=== PATIENT | female | born 1980 | race Caucasian/White ===

== ENCOUNTER → 2019-03-06 12:51 | Outpatient (BNVA) | payer MEDICAID, SELFPAY | PROVIDERS: Family Provider Family Medicine; PCP Family Medicine; Visit Provider Nurse Practitioner Psychiatric/Mental Health | DX: F25.0 Schizoaffective disorder, bipolar type (principal) | CPT/HCPCS: 99213 ==

== ENCOUNTER → 2019-04-03 09:39 | Outpatient (BNVA) | payer MEDICAID, SELFPAY | PROVIDERS: Family Provider Family Medicine; PCP Family Medicine; Visit Provider Social Worker Clinical | DX: F25.0 Schizoaffective disorder, bipolar type (principal) | CPT/HCPCS: 90834 ==

== ENCOUNTER → 2019-05-04 12:31 | Outpatient (BNVA) | payer MEDICAID, SELFPAY | PROVIDERS: Family Provider Family Medicine; PCP Family Medicine; Visit Provider Social Worker Clinical | DX: F25.0 Schizoaffective disorder, bipolar type (principal) | CPT/HCPCS: 90834 ==

== ENCOUNTER → 2019-05-28 07:12 | Outpatient (BNVA) | payer MEDICAID, SELFPAY | PROVIDERS: Family Provider Family Medicine; PCP Family Medicine; Visit Provider Nurse Practitioner Psychiatric/Mental Health | DX: F25.0 Schizoaffective disorder, bipolar type (principal) | CPT/HCPCS: 99214 ==

== ENCOUNTER → 2019-06-04 13:16 | Outpatient (BNVA) | payer MEDICAID, SELFPAY | PROVIDERS: Family Provider Family Medicine; PCP Family Medicine; Visit Provider Social Worker Clinical | DX: F25.0 Schizoaffective disorder, bipolar type (principal) | CPT/HCPCS: 90834 ==

== ENCOUNTER → 2019-06-18 08:11 | Outpatient (BNVA) | payer MEDICAID, SELFPAY | PROVIDERS: Family Provider Family Medicine; PCP Family Medicine; Visit Provider Social Worker Clinical | DX: F25.0 Schizoaffective disorder, bipolar type (principal) | CPT/HCPCS: 90832 ==

== ENCOUNTER → 2019-06-25 08:03 | Outpatient (BNVA) | payer MEDICAID, SELFPAY | PROVIDERS: Family Provider Family Medicine; PCP Family Medicine; Visit Provider Nurse Practitioner Psychiatric/Mental Health | DX: F25.0 Schizoaffective disorder, bipolar type (principal) | CPT/HCPCS: 99213 ==

== ENCOUNTER → 2019-07-10 09:04 | Outpatient (BNVA) | payer MEDICAID, SELFPAY | PROVIDERS: Family Provider Family Medicine; PCP Family Medicine; Visit Provider Obstetrics & Gynecology | DX: Z30.42 Encounter for surveillance of injectable contraceptive (principal) | CPT/HCPCS: 81025 ==

== ENCOUNTER → 2019-07-17 07:49 | Outpatient (BNVA) | payer MEDICAID, SELFPAY | PROVIDERS: Family Provider Family Medicine; PCP Family Medicine; Visit Provider Social Worker Clinical | DX: F25.0 Schizoaffective disorder, bipolar type (principal) | CPT/HCPCS: 90832 ==

== ENCOUNTER → 2019-07-24 07:37 | Outpatient (BNVA) | payer MEDICAID, SELFPAY | PROVIDERS: Family Provider Family Medicine; PCP Family Medicine; Visit Provider Nurse Practitioner Psychiatric/Mental Health | DX: F25.0 Schizoaffective disorder, bipolar type (principal); Z79.899 Other long term (current) drug therapy | CPT/HCPCS: 99213 ==

== ENCOUNTER → 2019-08-17 08:05 | Outpatient (BNVA) | payer MEDICAID, SELFPAY | PROVIDERS: Family Provider Family Medicine; PCP Family Medicine; Visit Provider Social Worker Clinical | DX: F25.0 Schizoaffective disorder, bipolar type (principal) | CPT/HCPCS: 90832 ==

== ENCOUNTER → 2019-09-14 07:59 | Outpatient (BNVA) | payer MEDICAID, SELFPAY | PROVIDERS: Family Provider Family Medicine; PCP Family Medicine; Visit Provider Social Worker Clinical | DX: F25.0 Schizoaffective disorder, bipolar type (principal) | CPT/HCPCS: 90791 ==

== ENCOUNTER → 2019-09-17 08:28 | Outpatient (BNVA) | payer MEDICAID, SELFPAY | PROVIDERS: Family Provider Family Medicine; PCP Family Medicine; Visit Provider Nurse Practitioner Psychiatric/Mental Health | DX: F25.0 Schizoaffective disorder, bipolar type (principal); F43.12 Post-traumatic stress disorder, chronic; Z79.899 Other long term (current) drug therapy | CPT/HCPCS: 99213 ==

== ENCOUNTER → 2019-09-18 09:09 | Outpatient (BNVA) | payer MEDICAID, SELFPAY | PROVIDERS: Family Provider Family Medicine; PCP Family Medicine; Visit Provider Nurse Practitioner Psychiatric/Mental Health | DX: Z79.899 Other long term (current) drug therapy (principal) | CPT/HCPCS: 80053; 80061; 83036; 85025 ==

== ENCOUNTER 2019-11-08 08:18 | Inpatient (IN) | payer MEDICAID, SELFPAY ==
[2019-11-08 08:18] VITALS: BP 134/103; PULSE 110; RESP 16; TEMP 36.6; O2SAT 96; BMI 25.6
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
[2019-11-08 08:52] LABS: Glucose Point of Care 174 mg/dL (70-110)
[2019-11-08 09:23] LABS: Add Urine Microscopic? NO
[2019-11-08 09:31] LABS: Basophils # 0.1 10^3/uL (0.0-0.1); Basophils % 0.4 %; Eosinophils # 0.1 10^3/uL (0.0-0.8); Eosinophils % 0.6 %; Hematocrit 47.9 % (37.0-47.0); Hemoglobin 16.4 g/dL (11.5-15.3); Lymphocytes # 2.2 10^3/uL (0.8-4.8); Lymphocytes % 20.1 %; Mean Corpuscular HGB Conc 34.2 g/dL (30.0-36.0); Mean Corpuscular Hemoglobin 34.5 pg (28.0-34.0); Mean Corpuscular Volume 100.8 fL (81-99); Mean Platelet Volume 10.4 fL (7.4-10.4); Monocytes # 0.5 10^3/uL (0.2-0.9); Monocytes % 4.9 %; Neutrophils # 8.19 10^3/uL (1.8-7.7); Neutrophils % 73.6 %; Nucleated Red Blood Cells % 0 %; Platelet Count 274 10^3/cmm (130-400); Red Blood Count 4.75 10^6/uL (4.1-5.3); Red Cell Distribution Width 12.3 % (12.1-15.1); White Blood Count 11.1 10^3/uL (4.0-10.0)
[2019-11-08 09:40] LABS: HCG Qualitative Urine. Negative (Negative); Urine Appearance Clear (CLEAR); Urine Color Yellow (Yellow)
[2019-11-08 09:41] LABS: Bilirubin Urine Neg (Negative); Blood Urine Neg (Negative); Glucose Urine UA Norm (Normal); Ketones Urine Negative (Negative); Leukocyte Esterase Urine Negative (Negative); Nitrate Urine Negative (Negative); Protein Urine Neg (Negative); Urobilinogen Urine Norm (Negative); pH Urine 6.5 (5-7)
[2019-11-08 09:43] LABS: INR 0.86 (0.8-1.2)
[2019-11-08 09:48] LABS: Amphetamines Screen Urine Negative (Negative); Barbiturates Screen Urine Negative (Negative); Benzodiazepines Screen Urine Negative (Negative); Cocaine Screen Urine Negative (Negative); Opiate Screen Urine Negative (Negative); PCP Screen Urine Negative (Negative); THC Screen Urine Positive (Negative)
[2019-11-08 10:05] LABS: Alanine Aminotransferase 10 U/L (0-33); Alkaline Phosphatase 110 IU/L (35-105); Anion Gap 16.8 (5-19); Aspartate Amino Transferase 16 U/L (0-32); Blood Urea Nitrogen 3 mg/dL (6-20); Calcium 9.6 mg/dL (8.5-10.5); Carbon Dioxide 20 mmol/L (22-29); Chloride 103 mmol/L (98-107); Creatinine Clr Calc Pharmacy 93.5358; Globulin 3.1 g/dL (1.3-4.6); Glomerular Filtration Rate 92.7 mL/min (90-130); Glucose 178 mg/dL (65-115); Osmolality Calculated 282 mOsm/kg (285-295); Potassium 3.8 mmol/L (3.5-5.1); Salicylate 0.6 mg/dL (3-10); Sodium 136 mmol/L (136-145); Thyroid Stimulating Hormone 1.68 uIU/mL (0.27-4.20); Total Bilirubin 0.3 mg/dL (0.15-1.2); Total Protein 7.1 g/dL (6.6-8.7)
[2019-11-08 10:06] LABS: Acetaminophen < 5.0 ug/mL (10-30); Alcohol Level < 10 mg/dL (0-10)
--- NOTE | 2019-11-08 10:26 | PC.NURSE ---
pt upset stating she wants to be released. ED physician and this nurse in room to inform her that she is placed on a 96 hour hold. pt understands.
[2019-11-08 10:38] VITALS: BP 163/120; PULSE 114; RESP 19; TEMP 36.8; O2SAT 98
[2019-11-08 14:00] VITALS: BP 111/75; PULSE 77; RESP 16; TEMP 36.7
[2019-11-08] MEDS: ziprasidone hcl 40 mg Capsule PO (14:10)
[2019-11-08] MEDS: BuSPIRONE 10 mg Tablet PO (14:11)
[2019-11-08 16:37] LABS: Glucose Point of Care 132 mg/dL (70-110)
[2019-11-08] MEDS: metformin 500 mg Tablet PO (17:25)
[2019-11-08] MEDS: ziprasidone hcl 40 mg Capsule 80 MG PO (17:26)
[2019-11-08 22:00] VITALS: BP 94/61; PULSE 87; RESP 15; TEMP 37.5; O2SAT 96
--- NOTE | 2019-11-08 22:20 | PC.NURSE ---
attempt made to give pt scheduled HS elijah, pt refused med.
--- NOTE | 2019-11-09 02:53 | PC.NURSE ---
Patient is sleeping and has been in her room since 1900 when I came on shift. She is pleasant and easy to work with. She said that she had been chilling but that has stopped. She reports being tired.
[2019-11-09 05:33] LABS: Glucose Point of Care 136 mg/dL (70-110)
[2019-11-09] MEDS: ziprasidone hcl 40 mg Capsule PO (05:35)
[2019-11-09 06:00] VITALS: BP 137/92; PULSE 83; RESP 16; TEMP 36.7; O2SAT 94
--- NOTE | 2019-11-09 06:01 | PC.NURSE ---
pt given scheduled buspar and geodon without difficulty.
[2019-11-09] MEDS: metformin 500 mg Tablet PO ×2 (09:09→17:15)
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
[2019-11-09 13:43] VITALS: BP 140/86; PULSE 81; RESP 18; TEMP 36.9; O2SAT 96
--- NOTE | 2019-11-09 15:24 | PC.RESP ---
Smoking Cessation information and a schedule of classes sent to patient.
[2019-11-09] MEDS: ziprasidone hcl 40 mg Capsule 80 MG PO (17:16)
[2019-11-09] MEDS: BuSPIRONE 10 mg Tablet PO (20:44)
[2019-11-09] MEDS: trazodone 50 mg Tablet PO (20:45)
[2019-11-09] MEDS: hyDROXYzine 25 mg Capsule 50 MG PO (20:45)
[2019-11-09 22:00] VITALS: BP 107/74; PULSE 88; RESP 16; TEMP 36.6; O2SAT 95
--- NOTE | 2019-11-09 22:00 | PC.NURSE ---
PT WAS GIVEN SCHEDULED BUSPAR WELL PRN TRAZODONE AND PRN VISTARIL PER PT REQUEST FOR ANXIETY AND SLEEP MEDS.
[2019-11-10] MEDS: ziprasidone hcl 40 mg Capsule PO (05:55)
[2019-11-10 06:00] VITALS: BP 129/82; PULSE 71; RESP 16; TEMP 36.6; O2SAT 94
[2019-11-10 07:04] LABS: Glucose Point of Care 148 mg/dL (70-110)
[2019-11-10] MEDS: metformin 500 mg Tablet PO ×2 (09:00→17:48)
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
[2019-11-10 14:00] VITALS: BP 112/84; PULSE 72; RESP 18; TEMP 36.7; O2SAT 96
[2019-11-10 16:53] LABS: Glucose Point of Care 150 mg/dL (70-110)
[2019-11-10] MEDS: ziprasidone hcl 40 mg Capsule 80 MG PO (17:49)
[2019-11-10 20:40] VITALS: BP 123/85; PULSE 74; RESP 16; TEMP 36.4; O2SAT 94
[2019-11-10] MEDS: trazodone 50 mg Tablet PO (21:09)
[2019-11-10] MEDS: hyDROXYzine 25 mg Capsule 50 MG PO (21:09)
[2019-11-10] MEDS: BuSPIRONE 10 mg Tablet PO (21:09)
[2019-11-11 06:00] VITALS: BP 97/29; PULSE 73; RESP 16; TEMP 37.1; O2SAT 92
[2019-11-11] MEDS: ziprasidone hcl 60 mg Capsule PO (06:22)
[2019-11-11] MEDS: metformin 500 mg Tablet PO ×2 (07:53→16:55)
[2019-11-11 14:00] VITALS: BP 112/80; PULSE 69; RESP 18; TEMP 36.7; O2SAT 96
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
[2019-11-11] MEDS: ziprasidone hcl 40 mg Capsule 80 MG PO (16:55)
[2019-11-11 17:00] LABS: Glucose Point of Care 177 mg/dL (70-110)
[2019-11-11] MEDS: hyDROXYzine 25 mg Capsule 50 MG PO (21:15)
[2019-11-11] MEDS: BuSPIRONE 10 mg Tablet PO (21:15)
[2019-11-11 21:39] VITALS: BP 124/85; PULSE 63; RESP 19; TEMP 36.6; O2SAT 96
[2019-11-12 06:00] VITALS: BP 116/80; PULSE 80; RESP 17; TEMP 36.8; O2SAT 96
[2019-11-12] MEDS: ziprasidone hcl 60 mg Capsule PO (06:58)
[2019-11-12 07:00] LABS: Glucose Point of Care 157 mg/dL (70-110)
[2019-11-12] MEDS: metformin 500 mg Tablet PO ×2 (08:18→17:07)
[2019-11-12 14:00] VITALS: BP 105/74; PULSE 77; RESP 18; TEMP 37.7; O2SAT 96
[2019-11-12] MEDS: ziprasidone hcl 40 mg Capsule 80 MG PO (17:08)
[2019-11-12 20:22] LABS: Glucose Point of Care 131 mg/dL (70-110)
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
[2019-11-12 22:00] VITALS: BP 119/77; PULSE 62; RESP 20; TEMP 36.5; O2SAT 96
[2019-11-12] MEDS: BuSPIRONE 10 mg Tablet PO (22:00)
[2019-11-13] MEDS: ziprasidone hcl 60 mg Capsule PO (05:44)
[2019-11-13 06:00] VITALS: BP 141/93; PULSE 74; RESP 19; TEMP 36.9; O2SAT 97
[2019-11-13 06:42] LABS: Glucose Point of Care 169 mg/dL (70-110)
[2019-11-13] MEDS: metformin 500 mg Tablet PO (08:35)
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
[2019-11-13 10:02] VITALS: BP 141/93; PULSE 74; RESP 19; TEMP 36.9; O2SAT 97
== END 2019-11-13 10:48 | disposition home or self-care (01) | DRG 885 ==
LOC: ER 08:39 → NP 10:29
PROVIDERS: Emergency Medicine; Admitting Provider Psychiatry & Neurology Psychiatry; PCP Family Medicine; Visit Provider Psychiatry & Neurology Psychiatry
DX: F25.0 Schizoaffective disorder, bipolar type (principal); Z91.14 Patient's other noncompliance with medication regimen; R45.850 Homicidal ideations; F17.210 Nicotine dependence, cigarettes, uncomplicated; E11.9 Type 2 diabetes mellitus without complications; Z79.84 Long term (current) use of oral hypoglycemic drugs
CPT/HCPCS: 12345; 36416; 80053; 80306; 80307; 81003; 81025; 82962; 84443; 85025; 85610; 99284

== ENCOUNTER 2019-11-18 19:18 | Inpatient (IN) | payer MEDICAID, SELFPAY ==
[2019-11-18 19:20] VITALS: BP 147/99; PULSE 112; RESP 20; TEMP 37.2; O2SAT 96; BMI 32.9
--- NOTE | 2019-11-18 19:28 | ED_ITS ---
HPI - Psych General: Chief Complaint: Psychiatric Symptoms Stated Complaint: SI Time Seen by Provider: 11/18/19 19:19 Source: patient and police Mode of arrival: other (police) Limitations: no limitations History of Present Illness: HPI Narrative: 38-year-old female who came in by police for acute psychosis. Patient was recently admitted to the psych unit for the same. Patient's mother states that she has not been taking her meds and is been using street drugs. Patient here states that she can hear the government talking in her house and thinks her can burn her house down and also believes they are going to take over other countries. She denies SI or HI. Associated symptoms: Reports auditory hallucinations Review of Systems Const: Denies: fever(s), chills, body aches or change in appetite Eyes: Denies: blurry vision or eye discomfort ENMT: Denies: throat pain or dental pain Card: Denies: chest pain Resp: Denies: dyspnea GI: Denies: abdominal pain, nausea, vomiting or diarrhea : Denies: dysuria Musc: Denies: neck pain or back pain Skin/Breast: Denies: rash Neuro: Denies: headache(s) Psych: Reports: paranoia and auditory hallucinations Mukund/Lymph: Denies: easy bruising All/Imm: Denies: urticaria PFSH ED PFSH: Medical History Contraception management Schizoaffective disorder, bipolar type Type 2 diabetes mellitus Family History Mother Hypertension Denies family history of Diabetes Hyperlipidemia Stroke Social History Smoking and tobacco status: current every day smoker cigarettes Packs smoked per day: 0.5 Years cigarettes smoked: 20 Quit status (tobacco): not considering quitting Second hand smoke exposure: No Alcohol intake: never Last substance use date: 07/03/19 Physical Exam Const: COMMON NORMALS: no acute distress, patient oriented x3 and healthy appearing HENMT: COMMON NORMALS: normocephalic and atraumatic HEAD & SCALP: normocephalic and atraumatic Eye: COMMON NORMALS: Equal, round and reactive pupils present and EOMs intact bilaterally PUPIL: Yes Equal, round and reactive pupils present Neck/C-Spine: COMMON NORMALS: full ROM and supple Chest: COMMONS NORMALS: normal inspection of the chest and normal palpation of entire chest wall Resp: COMMON NORMALS: normal respiratory effort, No retractions, No use of accessory muscles and clear to auscultation bilaterally AUSCULTATION: clear to auscultation bilaterally Cardio: COMMON NORMALS: regular rate, regular rhythm and No murmurs present (Cardio) RATE: regular rate RHYTHM: regular rhythm GI: COMMON NORMALS: Normal to inspection, nondistended, normoactive bowel sounds present, Soft to palpation, non-tender and no masses PALPATION: Yes Soft to palpation Extremity: COMMON NORMALS: normal to inspection and full ROM Neuro: COMMON NORMALS: patient oriented x3, moves all extremities and no focal motor deficits Psych: COMMON NORMALS: mental status grossly normal and cooperative THOUGHT PROCESS: disorganized, Flight of ideas present and Illogical thought process present Skin: COMMON NORMALS: no rashes or lesions noted and no wounds GENERAL SKIN EXAM: no rashes or lesions noted MDM - Psych MDM Narrative: Medical decision making narrative: Patient presents with acute psychosis. Per mom she has been using drugs and not taking her medicines. Patient is acutely psychotic and is telling me that she can hear the government and they are planning to take over other countries and burn her house down. Patient is quite anxious as well. Lab Data: Labs: Lab Results 11/18/19 11/18/19 Range/Units 19:40 19:40 WBC 12.5 H (4.0-10.0) 10^3/ uL RBC 4.80 (4.1-5.3) 10^6/u L Hgb 16.6 H (11.5-15.3) g/dL Hct 47.9 H (37.0-47.0) % MCV 99.8 H (81-99) fL MCH 34.6 H (28.0-34.0) pg MCHC 34.7 (30.0-36.0) g/dL RDW 11.9 L (12.1-15.1) % Plt Count 290 (130-400) 10^3/c mm MPV 10.4 (7.4-10.4) fL Neut % (Auto) 52.6 % Lymph % (Auto) 41.1 % Moody % (Auto) 4.5 % Eos % (Auto) 1.0 % Baso % (Auto) 0.5 % Neut # (Auto) 6.59 (1.8-7.7) 10^3/u L Lymph # (Auto) 5.2 H (0.8-4.8) 10^3/u L Moody # (Auto) 0.6 (0.2-0.9) 10^3/u L Eos # (Auto) 0.1 (0.0-0.8) 10^3/u L Baso # (Auto) 0.1 (0.0-0.1) 10^3/u L Nucleated RBC % (a uto) 0 % Nucleated RBCs # 0.0 /100WBC Sodium 136 (136-145) mmol/L Potassium 3.4 L (3.5-5.1) mmol/L Chloride 102 (98-107) mmol/L Carbon Dioxide 20 L (22-29) mmol/L Anion Gap 17.4 (5-19) BUN 6 (6-20) mg/dL Creatinine 0.8 (0.5-0.9) mg/dL GFR Calculation 79.4 L (90-130) mL/min Glucose 151 H (65-115) mg/dL Calculated Osmolal ity 283 L (285-295) mOsm/k g Calcium 9.9 (8.5-10.5) mg/dL Total Bilirubin 0.3 (0.15-1.2) mg/dL AST 15 (0-32) U/L ALT 10 (0-33) U/L Alkaline Phosphata se 118 H (35-105) IU/L Total Protein 7.2 (6.6-8.7) g/dL Albumin 4.2 (3.5-5.2) g/dL Globulin 3.0 (1.3-4.6) g/dL Salicylates < 0.3 L (3-10) mg/dL Acetaminophen < 5.0 L (10-30) ug/mL Ethyl Alcohol < 10 (0-10) mg/dL Discharge Plan Discharge Patient Disposition: Admitted As Inpatient Clinical Impression: Acute psychosis, Schizoaffective disorder, bipolar type Condition: Stable Referrals: Zhane Parker MD [Primary Care Provider] - Coding Level of Care Code ED Principal Statistical Scientist for Chg Fwd Exam Comprehensive
[2019-11-18] MEDS: LORazepam 2 mg/mL INJ 1 mL IM (19:33)
[2019-11-18 19:50] VITALS: BP 138/88; PULSE 102; RESP 18; O2SAT 96
[2019-11-18 19:58] LABS: Basophils # 0.1 10^3/uL (0.0-0.1); Basophils % 0.5 %; Eosinophils # 0.1 10^3/uL (0.0-0.8); Hematocrit 47.9 % (37.0-47.0); Hemoglobin 16.6 g/dL (11.5-15.3); Lymphocytes # 5.2 10^3/uL (0.8-4.8); Lymphocytes % 41.1 %; Mean Corpuscular HGB Conc 34.7 g/dL (30.0-36.0); Mean Corpuscular Hemoglobin 34.6 pg (28.0-34.0); Mean Corpuscular Volume 99.8 fL (81-99); Mean Platelet Volume 10.4 fL (7.4-10.4); Monocytes # 0.6 10^3/uL (0.2-0.9); Monocytes % 4.5 %; Neutrophils # 6.59 10^3/uL (1.8-7.7); Neutrophils % 52.6 %; Nucleated Red Blood Cells % 0 %; Platelet Count 290 10^3/cmm (130-400); Red Cell Distribution Width 11.9 % (12.1-15.1); White Blood Count 12.5 10^3/uL (4.0-10.0)
[2019-11-18 20:01] VITALS: BP 104/55; PULSE 80; RESP 16; TEMP 36.5; O2SAT 93
[2019-11-18 20:08] LABS: Alanine Aminotransferase 10 U/L (0-33); Albumin Level 4.2 g/dL (3.5-5.2); Alkaline Phosphatase 118 IU/L (35-105); Anion Gap 17.4 (5-19); Aspartate Amino Transferase 15 U/L (0-32); Blood Urea Nitrogen 6 mg/dL (6-20); Calcium 9.9 mg/dL (8.5-10.5); Carbon Dioxide 20 mmol/L (22-29); Chloride 102 mmol/L (98-107); Glomerular Filtration Rate 79.4 mL/min (90-130); Glucose 151 mg/dL (65-115); Osmolality Calculated 283 mOsm/kg (285-295); Potassium 3.4 mmol/L (3.5-5.1); Sodium 136 mmol/L (136-145); Total Bilirubin 0.3 mg/dL (0.15-1.2); Total Protein 7.2 g/dL (6.6-8.7)
[2019-11-18 20:11] LABS: Acetaminophen < 5.0 ug/mL (10-30); Alcohol Level < 10 mg/dL (0-10); Salicylate < 0.3 mg/dL (3-10)
--- NOTE | 2019-11-18 20:46 | PC.NURSE ---
pt report called to Elayne MCDONALD in SBAR format.
[2019-11-18 21:28] LABS: Amphetamines Screen Urine Negative (Negative); Barbiturates Screen Urine Negative (Negative); Benzodiazepines Screen Urine Negative (Negative); Cocaine Screen Urine Negative (Negative); Opiate Screen Urine Negative (Negative); PCP Screen Urine Negative (Negative); THC Screen Urine Positive (Negative)
[2019-11-18 21:36] VITALS: BP 104/55; PULSE 80; RESP 16; TEMP 36.5; O2SAT 93
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
[2019-11-18] MEDS: ziprasidone hcl 40 mg Capsule 80 MG PO (23:48)
--- NOTE | 2019-11-19 04:33 | PC.NURSE ---
Glipizide order is questionable. Please reference this medication on day shift.
[2019-11-19 06:00] VITALS: BP 120/78; PULSE 104; RESP 15; TEMP 36.7; O2SAT 93
[2019-11-19 06:55] LABS: Glucose Point of Care 148 mg/dL (70-110)
[2019-11-19] MEDS: metformin 500 mg Tablet PO ×2 (09:16→16:50)
[2019-11-19] MEDS: ziprasidone hcl 60 mg Capsule PO (09:16)
[2019-11-19] MEDS: benztropine 1 mg Tablet PO ×2 (09:16→16:49)
[2019-11-19] MEDS: paliperidone ER 6 mg Tablet PO (13:05)
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
[2019-11-19 14:00] VITALS: BP 118/82; PULSE 80; RESP 20; TEMP 36.7; O2SAT 95
[2019-11-19] MEDS: BuSPIRONE 10 mg Tablet PO (16:50)
[2019-11-19 19:34] LABS: Glucose Point of Care 121 mg/dL (70-110)
[2019-11-19] MEDS: ziprasidone hcl 40 mg Capsule 80 MG PO (20:39)
[2019-11-19] MEDS: trazodone 50 mg Tablet PO (20:40)
[2019-11-19 21:08] VITALS: BP 133/97; PULSE 78; RESP 15; TEMP 36.4; O2SAT 97
[2019-11-20 06:00] VITALS: BP 121/83; PULSE 99; RESP 18; TEMP 36.8; O2SAT 94
[2019-11-20 06:57] LABS: Glucose Point of Care 127 mg/dL (70-110)
[2019-11-20] MEDS: metformin 500 mg Tablet PO ×2 (08:05→17:12)
[2019-11-20] MEDS: ziprasidone hcl 60 mg Capsule PO ×2 (08:05→21:46)
[2019-11-20] MEDS: paliperidone ER 6 mg Tablet PO (08:05)
[2019-11-20] MEDS: benztropine 1 mg Tablet PO ×2 (08:05→17:12)
--- NOTE | 2019-11-20 09:12 | PC.RESP ---
Smoking Cessation information sent to patient.
[2019-11-20 11:15] LABS: Glucose Point of Care 118 mg/dL (70-110)
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
[2019-11-20 14:00] VITALS: BP 129/78; PULSE 80; RESP 18; TEMP 36.4; O2SAT 95
[2019-11-20 16:34] LABS: Glucose Point of Care 113 mg/dL (70-110)
[2019-11-20] MEDS: BuSPIRONE 10 mg Tablet PO (17:13)
[2019-11-20 20:21] LABS: Glucose Point of Care 106 mg/dL (70-110)
[2019-11-20] MEDS: trazodone 50 mg Tablet PO (21:46)
--- NOTE | 2019-11-20 21:46 | PC.NURSE ---
Addendum entered by Brian Valero LPN 11/20/19 23:21: LATE ENTRY PRN FOLLOW UP @ 2990 PRN MEDICATION EFFECTIVE. PT RESTING IN BED WITH EYES CLOSED, RR EVEN AND UNLABORED. WILL CONTINUE TO MONITOR. Original Note: PRN TRAZODONE ADMINISTERED TRAZODONE 50 MG PO PER PT REQUEST FOR SLEEP AID. WILL MONITOR FOR MEDICATION EFFECTIVENESS.
[2019-11-20 22:00] VITALS: BP 113/78; PULSE 84; RESP 17; TEMP 36.7; O2SAT 95
[2019-11-20] MEDS: blistex lip oint 7 gm Tube 1 APPLIC TOPICAL (22:51)
[2019-11-21 06:00] VITALS: BP 117/75; PULSE 88; RESP 18; TEMP 36.4; O2SAT 98
[2019-11-21 06:32] LABS: Glucose Point of Care 146 mg/dL (70-110)
[2019-11-21] MEDS: paliperidone ER 6 mg Tablet PO (08:27)
[2019-11-21] MEDS: ziprasidone hcl 60 mg Capsule PO (08:28)
[2019-11-21] MEDS: benztropine 1 mg Tablet PO ×2 (08:28→17:08)
[2019-11-21] MEDS: metformin 500 mg Tablet PO ×2 (08:28→17:08)
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
[2019-11-21 14:00] VITALS: BP 132/89; PULSE 102; RESP 18; TEMP 37.1
[2019-11-21] MEDS: BuSPIRONE 10 mg Tablet PO (17:08)
[2019-11-21] MEDS: ziprasidone hcl 40 mg Capsule PO (21:12)
[2019-11-21] MEDS: acetaminophen 325 mg Tablet 650 MG PO (21:12)
[2019-11-21 21:13] LABS: Glucose Point of Care 113 mg/dL (70-110)
[2019-11-21 21:22] VITALS: BP 112/79; PULSE 94; RESP 17; TEMP 36.4; O2SAT 94
[2019-11-22 06:00] VITALS: BP 124/83; PULSE 88; RESP 16; TEMP 37; O2SAT 96
[2019-11-22 06:43] LABS: Glucose Point of Care 137 mg/dL (70-110)
[2019-11-22] MEDS: paliperidone ER 6 mg Tablet PO (08:36)
[2019-11-22] MEDS: metformin 500 mg Tablet PO ×2 (08:37→16:35)
[2019-11-22] MEDS: benztropine 1 mg Tablet PO ×2 (08:37→16:35)
[2019-11-22] MEDS: ziprasidone hcl 40 mg Capsule PO ×2 (08:38→20:33)
[2019-11-22] MEDS: paliperidone palmitate 234 mg Syringe IM (08:38)
[2019-11-22] MEDS: acetaminophen 325 mg Tablet 650 MG PO ×2 (08:43→20:34)
--- NOTE | 2019-11-22 08:44 | PC.NURSE ---
INVSYLVESTER SUSTENNA 234 MG GIVEN IM IN LEFT DELTOID PER PHYSICIAN ORDER. EDUCATED ON MED GIVEN AND VERBALIZED UNDERSTANDING WILL CONT TO MONITOR INJECTION SITE FOR ANY REDNESS, SWELLING, OR IRRITATION. LOT [id number] EXP 03/2021
--- NOTE | 2019-11-22 11:21 | P.PN_ITS ---
Subjective NPU Subjective: Interval history: Zulema presented today reporting that she got her injection and she feels like she is doing better. We discussed the risk benefits and alternatives of decreasing her Geodon to 20 mg p.o. twice daily tomorrow and she understood and agreed to proceed as documented in this note. We discussed the fact that she would need another shot in a week and that the treatment team would work on getting that arranged. She denied any additional issues at this time. She reports she is eating and sleeping fine. Mental Status Exam MSE Comments: This is an obese white female with adequate dress, grooming and adequate eye contact. No abnormal movements except for improving psychomotor retardation. Cooperative with exam in no acute distress. Speech was normal ra te and volume. Mood described as pretty good, affect brighter. Thought process organized. Thought content: Patient denied any suicidal or homicidal ideation, she denied significant paranoia and reported less persecutory and non-were noted, she denied visual hallucinations, but endorsed decreasing auditory hallucinations . Attention and concentration seemed intact and memory was more reliable but none were formally tested. She is alert and oriented x3. Insight and judgment are limited, but improving. Impulse control is impaired. Vitals/I&O/Wt Last Vital Signs Temp 98.6 F 11/22/19 06:00 Pulse 88 11/22/19 06:00 Resp 16 11/22/19 06:00 BP 124/83 11/22/19 06:00 Pulse Ox 96 11/22/19 06:00 Weight last 48 hrs Weight 83.915 kg Data NPU : 11/18/19 19:40 11/18/19 19:40 A&P Additional A&P Information (1) Acute psychosis: (2) Schizoaffective disorder, bipolar type: (3) Type 2 diabetes mellitus: (4) Contraception management: (5) Cannabis abuse: This is a 38 year old, white female, with schizoaffective disorder, bipolar type, and diabetes, who presents for her second admission in 2 weeks again with some concerns for her being non-adherent to her medication, and with significant paranoid delusions about the government, significant enough to reportedly cause her to destroy property in an attempt to be safer. Continue current medication. We will decrease the Geodon to 20 mg p.o. twice daily tomorrow. And she received the Invega injection 234 mg IM to the deltoid today. Encourage individual, group, and milieu therapy. Continue q-15 minute checks for safety. Recommend sober living treatment at the highest level of care to which the patient is willing to commit. Involuntary Hold Information 96 Hour Hold: 96 Hour Involuntary Admission: Yes 96 Hour Hold Ending Date: 11/24/19 96 Hour Hold Ending Time: 22:00 Attestations NPU Medical Necessity Statement*: Inpatient hospitalization is medically necessary and the clinically appropriate intervention, at this time. We will monitor medications and make changes as indicated. Likely length of stay is 1-3 days. Coding Level of Care Code Acute Landscape Supervisor for Dami Bravo
[2019-11-22 13:15] VITALS: BP 110/76; PULSE 83; RESP 18; TEMP 36.4; O2SAT 96
[2019-11-22] MEDS: BuSPIRONE 10 mg Tablet PO (16:35)
[2019-11-22 20:46] LABS: Glucose Point of Care 142 mg/dL (70-110)
[2019-11-22 20:52] VITALS: BP 127/83; PULSE 72; RESP 17; TEMP 37.1; O2SAT 94
--- NOTE | 2019-11-22 21:30 | PC.NURSE ---
Pt given scheduled geodon and prn tylenol per request for left arm pain.
[2019-11-23 06:00] VITALS: BP 131/83; PULSE 81; RESP 15; TEMP 36.3; O2SAT 96
[2019-11-23] MEDS: ziprasidone hcl 40 mg Capsule 20 MG PO (06:01)
[2019-11-23 07:04] LABS: Glucose Point of Care 167 mg/dL (70-110)
[2019-11-23] MEDS: benztropine 1 mg Tablet PO (08:01)
[2019-11-23] MEDS: paliperidone ER 6 mg Tablet PO (08:01)
[2019-11-23] MEDS: metformin 500 mg Tablet PO (08:01)
[2019-11-23] MEDS: acetaminophen 325 mg Tablet 650 MG PO (08:05)
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
[2019-11-23 11:16] VITALS: BP 131/83; PULSE 81; RESP 15; TEMP 36.3; O2SAT 96
== END 2019-11-23 12:34 | disposition home or self-care (01) | DRG 885 ==
LOC: ER 19:46 → NP 20:29
PROVIDERS: Emergency Medicine; Admitting Provider Psychiatry & Neurology Psychiatry; PCP Family Medicine; Visit Provider Psychiatry & Neurology Psychiatry
DX: F25.0 Schizoaffective disorder, bipolar type (principal); F23 Brief psychotic disorder; E11.9 Type 2 diabetes mellitus without complications; Z30.42 Encounter for surveillance of injectable contraceptive; F12.10 Cannabis abuse, uncomplicated; Z79.84 Long term (current) use of oral hypoglycemic drugs; F17.210 Nicotine dependence, cigarettes, uncomplicated
CPT/HCPCS: 12345; 36415; 36416; 80053; 80306; 80307; 82962; 85025; 96372; 99284; J2060

== ENCOUNTER → 2019-11-26 08:17 | Outpatient (BNVA) | payer MEDICAID, SELFPAY | PROVIDERS: PCP Family Medicine; Visit Provider Social Worker Clinical | DX: F25.0 Schizoaffective disorder, bipolar type (principal) | CPT/HCPCS: 90834 ==

== ENCOUNTER → 2019-11-27 07:39 | Outpatient (BNVA) | payer MEDICAID, SELFPAY | PROVIDERS: PCP Family Medicine; Visit Provider Nurse Practitioner Psychiatric/Mental Health | DX: F25.0 Schizoaffective disorder, bipolar type (principal); F12.10 Cannabis abuse, uncomplicated | CPT/HCPCS: 96372; 99214 ==

== ENCOUNTER → 2019-12-08 08:53 | Outpatient (BNVA) | payer MEDICAID, SELFPAY | PROVIDERS: PCP Family Medicine; Visit Provider Social Worker Clinical | DX: F25.0 Schizoaffective disorder, bipolar type (principal) | CPT/HCPCS: 90832 ==

== ENCOUNTER → 2019-12-11 07:26 | Outpatient (BNVA) | payer MEDICAID, SELFPAY | PROVIDERS: PCP Family Medicine; Visit Provider Nurse Practitioner Psychiatric/Mental Health | DX: F25.0 Schizoaffective disorder, bipolar type (principal); F12.10 Cannabis abuse, uncomplicated | CPT/HCPCS: 99214 ==

== ENCOUNTER → 2019-12-21 11:10 | Outpatient (BNVA) | payer MEDICAID, SELFPAY | PROVIDERS: PCP Family Medicine; Visit Provider Family Medicine | DX: E11.9 Type 2 diabetes mellitus without complications (principal); F12.10 Cannabis abuse, uncomplicated; F25.0 Schizoaffective disorder, bipolar type | CPT/HCPCS: 80048; 83036; 85025 ==

== ENCOUNTER → 2019-12-24 10:59 | Outpatient (BNVA) | payer MEDICAID, SELFPAY | PROVIDERS: PCP Family Medicine; Visit Provider Nurse Practitioner Psychiatric/Mental Health | DX: Z79.899 Other long term (current) drug therapy (principal); F25.0 Schizoaffective disorder, bipolar type; F12.10 Cannabis abuse, uncomplicated | CPT/HCPCS: 96372; 99214 ==

== ENCOUNTER → 2020-02-04 08:56 | Outpatient (BNVA) | payer MEDICAID, SELFPAY ==
[2020-01-15 14:24] VITALS: BP 118/80; BMI 33.2
== END ==
PROVIDERS: PCP Family Medicine; Visit Provider Nurse Practitioner Psychiatric/Mental Health
DX: F25.0 Schizoaffective disorder, bipolar type (principal); F12.10 Cannabis abuse, uncomplicated
CPT/HCPCS: 96372; 99213

== ENCOUNTER → 2020-03-08 13:27 | Outpatient (BNVA) | payer MEDICAID, SELFPAY ==
[2020-01-15 14:24] VITALS: BP 118/80; BMI 33.2
== END ==
PROVIDERS: PCP Family Medicine; Visit Provider Nurse Practitioner Psychiatric/Mental Health
DX: F25.0 Schizoaffective disorder, bipolar type (principal); F12.10 Cannabis abuse, uncomplicated
CPT/HCPCS: 96372; 99213

== ENCOUNTER 2020-04-19 16:16 | Inpatient (IN) | payer MEDICAID, SELFPAY ==
[2020-01-15 14:24] VITALS: BP 118/80; BMI 33.2
[2020-04-19 16:40] VITALS: BP 157/102; PULSE 110; RESP 18; TEMP 36.6; O2SAT 97; BMI 36.6
--- NOTE | 2020-04-19 17:22 | W.ED.PSYCH ---
Documented by User: Arthur Fitzgerald DO 04/20/20 12:46 HPI - Psych General: Chief Complaint: Psychiatric Symptoms Stated Complaint: 96 Time Seen by Provider: 04/19/20 16:54 History of Present Illness: HPI Narrative: 39-year-old female presents to the emergency room on a 96-hour hold from the [facility]. Patient is having delusions of grandeur hallucinations both auditory and visual. Patient states she is getting government communications in her head names off prominent politicians saying she has to be at special missions for the [employer] [place]. She denies suicidal or homicidal ideation. She was noncompliant with her medication she usually gets monthly Invega shots at [facility] unsure when her last dosage was. Has not been taking any other medications per her report none are listed in medication list. She has had previous hospitalizations under similar circumstances. MD complaint: altered mental status Onset (ago): unknown Duration: constant and getting worse History of same: Yes Exacerbating factors: drug use (Bring old records past episodes of psychosis were brought on by or exacerbated by use of street drugs) Context: recent drug abuse Associated psychiatric symptoms: racing thoughts, auditory hallucinations, visual hallucinations and delusions Associated symptoms: Reports auditory hallucinations, visual hallucinations, delusions and racing thoughts; Deny depression, homicidal ideation or suicidal ideation Treatments prior to arrival: placed on mental health hold Review of Systems Const: Denies: fever(s), chills, body aches, change in appetite, fatigue or malaise ENMT: Denies: throat pain, ear or mastoid pain, nasal discharge or nasal congestion Card: Denies: chest pain, edema, dyspnea on exertion or orthopnea Resp: Denies: dyspnea, productive cough or non-productive cough GI: Denies: abdominal pain, nausea, vomiting, hematemesis, coffee ground emesis, diarrhea, constipation, bloating, hematochezia or melena : Denies: flank pain, difficulty voiding, dysuria, urinary frequency or urinary urgency Skin/Breast: Denies: rash or pruritus Psych: Reports: visual hallucinations and auditory hallucinations; Denies: depression, suicidal ideation or homicidal ideation [facility] ED PFSH: Medical History (Updated 04/19/20 @ 18:38 by Aleksandra Jones MD) Contraception management Schizoaffective disorder, bipolar type Type 2 diabetes mellitus Family History Mother Hypertension Denies family history of Diabetes Hyperlipidemia Stroke Social History Smoking and tobacco status: current every day smoker cigarettes Packs smoked per day: 0.5 Years cigarettes smoked: 20 Quit status (tobacco): not considering quitting Second hand smoke exposure: No Alcohol intake: never Last substance use date: 07/03/19 Current gender identity: Female Physical Exam Const: COMMON NORMALS: no acute distress GENERAL APPEARANCE: cooperative and comfortable ORIENTATION/CONSCIOUSNESS: Yes awake, Yes oriented to person, Yes oriented to place and Yes oriented to time HENMT: COMMON NORMALS: normocephalic, atraumatic and hearing grossly normal bilaterally HEAD & SCALP: normocephalic and atraumatic Neck/C-Spine: COMMON NORMALS: no JVD Resp: COMMON NORMALS: normal respiratory effort, No retractions, No use of accessory muscles and clear to auscultation bilaterally AUSCULTATION: clear to auscultation bilaterally Cardio: COMMON NORMALS: no JVD, regular rate, regular rhythm and No murmurs present (Cardio) RATE: regular rate RHYTHM: regular rhythm GI: COMMON NORMALS: Soft to palpation and No hepatosplenomegaly present AUSCULTATION: Yes normoactive bowel sounds PALPATION: Yes Soft to palpation, No Tenderness to palpation present (GI), No Guarding due to palpation present (GI) and Yes No hepatosplenomegaly present Extremity: COMMON NORMALS: normal to inspection, capillary refill normal, no clubbing, cyanosis or edema, no calf tenderness and no pedal edema Neuro: SENSORIUM/ORIENTATION: Yes oriented to person, Yes oriented to place and Yes oriented to time Psych: THOUGHT CONTENT: Yes delusions Skin: COMMON NORMALS: no rashes or lesions noted GENERAL SKIN EXAM: no rashes or lesions noted MDM - Psych MDM Narrative: Medical decision making narrative: Patient acutely psychotic. She had similar episodes in the past. Labs pending anticipate admission.96-hour hold to neuropsych. Patient turned over to Dr. Jones at change of shift see his notes for final disposition and diagnosis Lab Data: Labs: Lab Results 02/23/21 02/23/21 02/23/21 Range/Units 17:28 17:28 17:40 WBC 9.6 (4.0-10.0) 10^3/ uL RBC 5.02 (4.1-5.3) 10^6/u L Hgb 17.1 H (11.5-15.3) g/dL Hct 49.6 H (37.0-47.0) % MCV 98.8 (81-99) fL MCH 34.1 H (28.0-34.0) pg MCHC 34.5 (30.0-36.0) g/dL RDW 12.1 (12.1-15.1) % Plt Count 250 (130-400) 10^3/c mm MPV 10.3 (7.4-10.4) fL Neut % (Auto) 70.3 % Lymph % (Auto) 22.5 % [place] % (Auto) 5.4 % Eos % (Auto) 0.9 % Baso % (Auto) 0.6 % Neut # (Auto) 6.70 (1.8-7.7) 10^3/u L Lymph # (Auto) 2.2 (0.8-4.8) 10^3/u L [place] # (Auto) 0.5 (0.2-0.9) 10^3/u L Eos # (Auto) 0.1 (0.0-0.8) 10^3/u L Baso # (Auto) 0.1 (0.0-0.1) 10^3/u L Nucleated RBC % (a uto) 0 % Nucleated RBCs # 0.0 /100WBC Sodium (136-145) mmol/L Potassium (3.5-5.1) mmol/L Chloride (98-107) mmol/L Carbon Dioxide (22-29) mmol/L Anion Gap (5-19) BUN (6-20) mg/dL Creatinine (0.5-0.9) mg/dL GFR Calculation (90-130) mL/min Glucose (65-115) mg/dL Calculated Osmolal ity (285-295) mOsm/k g Calcium (8.5-10.5) mg/dL Total Bilirubin (0.15-1.2) mg/dL AST (0-32) U/L ALT (0-33) U/L Alkaline Phosphata se (35-105) IU/L Total Protein (6.6-8.7) g/dL Albumin (3.5-5.2) g/dL Globulin (1.3-4.6) g/dL HCG, Qual (Negative) Urine Color Yellow (Yellow) Urine Appearance Clear (CLEAR) Urine pH 6.5 (5-7) Ur Specific Gravit y 1.005 (1.005-1.030) Urine Protein Neg (Negative) Urine Glucose (UA) Norm (Normal) Urine Ketones Negative (Negative) Urine Blood Neg (Negative) Urine Nitrate Negative (Negative) Urine Bilirubin Neg (Negative) Urine Urobilinogen Norm (Negative) mg/dL Ur Leukocyte Alaina ase Negative (Negative) Salicylates (3-10) mg/dL Urine Opiates Scre en Negative (Negative) ng/mL Acetaminophen (10-30) ug/mL Ur Barbiturates Sc reen Negative (Negative) ng/mL Ur Phencyclidine S crn Negative (Negative) ng/mL Ur Amphetamines Sc reen Negative (Negative) ng/mL U Benzodiazepines Scrn Negative (Negative) ng/mL Urine Cocaine Scre en Negative (Negative) ng/mL U Marijuana (THC) Screen Negative (Negative) ng/mL Ethyl Alcohol (0-10) mg/dL 04/19/20 04/19/20 Range/Units 17:40 17:40 WBC (4.0-10.0) 10^3/ uL RBC (4.1-5.3) 10^6/u L Hgb (11.5-15.3) g/dL Hct (37.0-47.0) % MCV (81-99) fL MCH (28.0-34.0) pg MCHC (30.0-36.0) g/dL RDW (12.1-15.1) % Plt Count (130-400) 10^3/c mm MPV (7.4-10.4) fL Neut % (Auto) % Lymph % (Auto) % [place] % (Auto) % Eos % (Auto) % Baso % (Auto) % Neut # (Auto) (1.8-7.7) 10^3/u L Lymph # (Auto) (0.8-4.8) 10^3/u L [place] # (Auto) (0.2-0.9) 10^3/u L Eos # (Auto) (0.0-0.8) 10^3/u L Baso # (Auto) (0.0-0.1) 10^3/u L Nucleated RBC % (a uto) % Nucleated RBCs # /100WBC Sodium 140 (136-145) mmol/L Potassium 3.6 (3.5-5.1) mmol/L Chloride 103 (98-107) mmol/L Carbon Dioxide 26 (22-29) mmol/L Anion Gap 14.6 (5-19) BUN 4 L (6-20) mg/dL Creatinine 0.7 (0.5-0.9) mg/dL GFR Calculation 92.2 (90-130) mL/min Glucose 168 H (65-115) mg/dL Calculated Osmolal ity 291 (285-295) mOsm/k g Calcium 9.3 (8.5-10.5) mg/dL Total Bilirubin 0.3 (0.15-1.2) mg/dL AST 16 (0-32) U/L ALT 12 (0-33) U/L Alkaline Phosphata se 136 H (35-105) IU/L Total Protein 7.2 (6.6-8.7) g/dL Albumin 4.2 (3.5-5.2) g/dL Globulin 3.0 (1.3-4.6) g/dL HCG, Qual Negative (Negative) Urine Color (Yellow) Urine Appearance (CLEAR) Urine pH (5-7) Ur Specific Gravit y (1.005-1.030) Urine Protein (Negative) Urine Glucose (UA) (Normal) Urine Ketones (Negative) Urine Blood (Negative) Urine Nitrate (Negative) Urine Bilirubin (Negative) Urine Urobilinogen (Negative) mg/dL Ur Leukocyte Alaina ase (Negative) Salicylates < 0.3 L (3-10) mg/dL Urine Opiates Scre en (Negative) ng/mL Acetaminophen < 5.0 L (10-30) ug/mL Ur Barbiturates Sc reen (Negative) ng/mL Ur Phencyclidine S crn (Negative) ng/mL Ur Amphetamines Sc reen (Negative) ng/mL U Benzodiazepines Scrn (Negative) ng/mL Urine Cocaine Scre en (Negative) ng/mL U Marijuana (THC) Screen (Negative) ng/mL Ethyl Alcohol < 10 (0-10) mg/dL Discharge Plan Discharge Patient Disposition: Admitted As Inpatient Admit Provider: Anni Hubbard Clinical Impression: Acute psychosis Condition: Stable Coding Level of Care Code ED Nursery Technician for Chg Fwd Exam Comprehensive Documented by User: Aleksandra Jones MD 04/19/20 18:41 HPI - Psych General: Chief Complaint: Psychiatric Symptoms Stated Complaint: 96 Time Seen by Provider: 04/19/20 16:54 PFSH ED PFSH: Medical History (Updated 04/19/20 @ 18:38 by Aleksandra Jones MD) Contraception management Schizoaffective disorder, bipolar type Type 2 diabetes mellitus Family History Mother Hypertension Denies family history of Diabetes Hyperlipidemia Stroke Social History Smoking and tobacco status: current every day smoker cigarettes Packs smoked per day: 0.5 Years cigarettes smoked: 20 Quit status (tobacco): not considering quitting Second hand smoke exposure: No Alcohol intake: never Last substance use date: 07/03/19 Current gender identity: Female MDM - Psych MDM Narrative: Medical decision making narrative: Took patient over from Dr. Alexander patient does have an acute psychosis and is under a 96-hour hold. Patient is medically cleared I spoke to psychiatrist will admit here. Patient has been stable while here. Lab Data: Labs: Lab Results 04/19/20 04/19/20 04/19/20 Range/Units 17:28 17:28 17:40 WBC 9.6 (4.0-10.0) 10^3/ uL RBC 5.02 (4.1-5.3) 10^6/u L Hgb 17.1 H (11.5-15.3) g/dL Hct 49.6 H (37.0-47.0) % MCV 98.8 (81-99) fL MCH 34.1 H (28.0-34.0) pg MCHC 34.5 (30.0-36.0) g/dL RDW 12.1 (12.1-15.1) % Plt Count 250 (130-400) 10^3/c mm MPV 10.3 (7.4-10.4) fL Neut % (Auto) 70.3 % Lymph % (Auto) 22.5 % [place] % (Auto) 5.4 % Eos % (Auto) 0.9 % Baso % (Auto) 0.6 % Neut # (Auto) 6.70 (1.8-7.7) 10^3/u L Lymph # (Auto) 2.2 (0.8-4.8) 10^3/u L [place] # (Auto) 0.5 (0.2-0.9) 10^3/u L Eos # (Auto) 0.1 (0.0-0.8) 10^3/u L Baso # (Auto) 0.1 (0.0-0.1) 10^3/u L Nucleated RBC % (a uto) 0 % Nucleated RBCs # 0.0 /100WBC Sodium (136-145) mmol/L Potassium (3.5-5.1) mmol/L Chloride (98-107) mmol/L Carbon Dioxide (22-29) mmol/L Anion Gap (5-19) BUN (6-20) mg/dL Creatinine (0.5-0.9) mg/dL GFR Calculation (90-130) mL/min Glucose (65-115) mg/dL Calculated Osmolal ity (285-295) mOsm/k g Calcium (8.5-10.5) mg/dL Total Bilirubin (0.15-1.2) mg/dL AST (0-32) U/L ALT (0-33) U/L Alkaline Phosphata se (35-105) IU/L Total Protein (6.6-8.7) g/dL Albumin (3.5-5.2) g/dL Globulin (1.3-4.6) g/dL HCG, Qual (Negative) Urine Color Yellow (Yellow) Urine Appearance Clear (CLEAR) Urine pH 6.5 (5-7) Ur Specific Gravit y 1.005 (1.005-1.030) Urine Protein Neg (Negative) Urine Glucose (UA) Norm (Normal) Urine Ketones Negative (Negative) Urine Blood Neg (Negative) Urine Nitrate Negative (Negative) Urine Bilirubin Neg (Negative) Urine Urobilinogen Norm (Negative) mg/dL Ur Leukocyte Alaina ase Negative (Negative) Salicylates (3-10) mg/dL Urine Opiates Scre en Negative (Negative) ng/mL Acetaminophen (10-30) ug/mL Ur Barbiturates Sc reen Negative (Negative) ng/mL Ur Phencyclidine S crn Negative (Negative) ng/mL Ur Amphetamines Sc reen Negative (Negative) ng/mL U Benzodiazepines Scrn Negative (Negative) ng/mL Urine Cocaine Scre en Negative (Negative) ng/mL U Marijuana (THC) Screen Negative (Negative) ng/mL Ethyl Alcohol (0-10) mg/dL 04/19/20 04/19/20 Range/Units 17:40 17:40 WBC (4.0-10.0) 10^3/ uL RBC (4.1-5.3) 10^6/u L Hgb (11.5-15.3) g/dL Hct (37.0-47.0) % MCV (81-99) fL MCH (28.0-34.0) pg MCHC (30.0-36.0) g/dL RDW (12.1-15.1) % Plt Count (130-400) 10^3/c mm MPV (7.4-10.4) fL Neut % (Auto) % Lymph % (Auto) % [place] % (Auto) % Eos % (Auto) % Baso % (Auto) % Neut # (Auto) (1.8-7.7) 10^3/u L Lymph # (Auto) (0.8-4.8) 10^3/u L [place] # (Auto) (0.2-0.9) 10^3/u L Eos # (Auto) (0.0-0.8) 10^3/u L Baso # (Auto) (0.0-0.1) 10^3/u L Nucleated RBC % (a uto) % Nucleated RBCs # /100WBC Sodium 140 (136-145) mmol/L Potassium 3.6 (3.5-5.1) mmol/L Chloride 103 (98-107) mmol/L Carbon Dioxide 26 (22-29) mmol/L Anion Gap 14.6 (5-19) BUN 4 L (6-20) mg/dL Creatinine 0.7 (0.5-0.9) mg/dL GFR Calculation 92.2 (90-130) mL/min Glucose 168 H (65-115) mg/dL Calculated Osmolal ity 291 (285-295) mOsm/k g Calcium 9.3 (8.5-10.5) mg/dL Total Bilirubin 0.3 (0.15-1.2) mg/dL AST 16 (0-32) U/L ALT 12 (0-33) U/L Alkaline Phosphata se 136 H (35-105) IU/L Total Protein 7.2 (6.6-8.7) g/dL Albumin 4.2 (3.5-5.2) g/dL Globulin 3.0 (1.3-4.6) g/dL HCG, Qual Negative (Negative) Urine Color (Yellow) Urine Appearance (CLEAR) Urine pH (5-7) Ur Specific Gravit y (1.005-1.030) Urine Protein (Negative) Urine Glucose (UA) (Normal) Urine Ketones (Negative) Urine Blood (Negative) Urine Nitrate (Negative) Urine Bilirubin (Negative) Urine Urobilinogen (Negative) mg/dL Ur Leukocyte Alaina ase (Negative) Salicylates < 0.3 L (3-10) mg/dL Urine Opiates Scre en (Negative) ng/mL Acetaminophen < 5.0 L (10-30) ug/mL Ur Barbiturates Sc reen (Negative) ng/mL Ur Phencyclidine S crn (Negative) ng/mL Ur Amphetamines Sc reen (Negative) ng/mL U Benzodiazepines Scrn (Negative) ng/mL Urine Cocaine Scre en (Negative) ng/mL U Marijuana (THC) Screen (Negative) ng/mL Ethyl Alcohol < 10 (0-10) mg/dL Discharge Plan Discharge Patient Disposition: Admitted As Inpatient Admit Provider: Anni Hubbard Clinical Impression: Acute psychosis Condition: Stable Coding Level of Care Code ED Nursery Technician for Chg Fwd Exam Comprehensive
[2020-04-19 18:05] LABS: Basophils # 0.1 10^3/uL (0.0-0.1); Basophils % 0.6 %; Eosinophils # 0.1 10^3/uL (0.0-0.8); Eosinophils % 0.9 %; Hematocrit 49.6 % (37.0-47.0); Hemoglobin 17.1 g/dL (11.5-15.3); Lymphocytes # 2.2 10^3/uL (0.8-4.8); Lymphocytes % 22.5 %; Mean Corpuscular HGB Conc 34.5 g/dL (30.0-36.0); Mean Corpuscular Hemoglobin 34.1 pg (28.0-34.0); Mean Corpuscular Volume 98.8 fL (81-99); Mean Platelet Volume 10.3 fL (7.4-10.4); Monocytes # 0.5 10^3/uL (0.2-0.9); Monocytes % 5.4 %; Neutrophils % 70.3 %; Nucleated Red Blood Cells % 0 %; Platelet Count 250 10^3/cmm (130-400); Red Blood Count 5.02 10^6/uL (4.1-5.3); Red Cell Distribution Width 12.1 % (12.1-15.1); White Blood Count 9.6 10^3/uL (4.0-10.0)
[2020-04-19 18:08] LABS: Add Urine Microscopic? NO
[2020-04-19 18:24] LABS: Alanine Aminotransferase 12 U/L (0-33); Albumin Level 4.2 g/dL (3.5-5.2); Alkaline Phosphatase 136 IU/L (35-105); Aspartate Amino Transferase 16 U/L (0-32); Blood Urea Nitrogen 4 mg/dL (6-20); Calcium 9.3 mg/dL (8.5-10.5); Carbon Dioxide 26 mmol/L (22-29); Chloride 103 mmol/L (98-107); Glomerular Filtration Rate 92.2 mL/min (90-130); Glucose 168 mg/dL (65-115); Osmolality Calculated 291 mOsm/kg (285-295); Sodium 140 mmol/L (136-145); Total Bilirubin 0.3 mg/dL (0.15-1.2); Total Protein 7.2 g/dL (6.6-8.7)
[2020-04-19 18:24] LABS: Bilirubin Urine Neg (Negative); Blood Urine Neg (Negative); Glucose Urine UA Norm (Normal); Ketones Urine Negative (Negative); Leukocyte Esterase Urine Negative (Negative); Nitrate Urine Negative (Negative); Protein Urine Neg (Negative); Specific Gravity, Urine 1.005 (1.005-1.030); Urine Appearance Clear (CLEAR); Urine Color Yellow (Yellow); Urobilinogen Urine Norm (Negative); pH Urine 6.5 (5-7)
[2020-04-19 18:26] LABS: Acetaminophen < 5.0 ug/mL (10-30); Alcohol Level < 10 mg/dL (0-10); Salicylate < 0.3 mg/dL (3-10)
[2020-04-19 18:27] LABS: Anion Gap 14.6 (5-19); Potassium 3.6 mmol/L (3.5-5.1)
[2020-04-19 18:46] VITALS: BP 139/71; PULSE 70; RESP 21; O2SAT 97
[2020-04-19 18:54] VITALS: BP 137/69; PULSE 68; RESP 18; O2SAT 97
[2020-04-19 19:27] LABS: HCG, Serum Qual Negative (Negative)
[2020-04-19 19:46] LABS: Glucose Point of Care 184 mg/dL (70-110)
[2020-04-19 19:58] VITALS: BP 127/84; PULSE 93; RESP 19; TEMP 36.8; O2SAT 96
[2020-04-19 20:00] VITALS: BP 127/84; PULSE 93; RESP 19; TEMP 36.8; O2SAT 96
[2020-04-19 20:02] LABS: Amphetamines Screen Urine Negative (Negative); Barbiturates Screen Urine Negative (Negative); Benzodiazepines Screen Urine Negative (Negative); Cocaine Screen Urine Negative (Negative); Opiate Screen Urine Negative (Negative); PCP Screen Urine Negative (Negative); THC Screen Urine Negative (Negative)
[2020-04-19] MEDS: hyDROXYzine 25 mg Capsule 50 MG PO (21:13)
[2020-04-19] MEDS: paliperidone ER 3 mg Tablet PO (21:13)
[2020-04-19] MEDS: trazodone 50 mg Tablet PO (21:14)
[2020-04-20 06:00] VITALS: BP 112/81; PULSE 106; RESP 16; TEMP 36.4; O2SAT 96
[2020-04-20 06:18] LABS: Glucose Point of Care 167 mg/dL (70-110)
[2020-04-20] MEDS: paliperidone ER 3 mg Tablet PO ×2 (08:05→20:40)
--- NOTE | 2020-04-20 12:52 | P.HP_ITS ---
Providers/Chief Complaint Admitting Physician: Anni Hubbard DO Primary Care Provider: Zhane Parker MD Chief Complaint: 96 W/Officer HPI NPU History of Present Illness Zulema Bellamy is a 39 year old female with history of schizoaffective disorder, bipolar type presented to the emergency department on 96-hour hold by police secondary to worsening delusions of grandeur, psychotic symptoms. Patient had been off of her monthly scheduled Invega injection which was due a couple of weeks ago and had not been taking any oral medication. Patient reports delusions that multiple prominent politicians are coordinating with her about alien activity occurring [place]. Patient does not provide any additional details stating that I should not be talking, and then noted that people in mental health do not believe anything I say. She denies any depressive symptoms, denies any recent sustained depressive symptoms, denies any suicidal ideation or thoughts about self-harm. She denies any history of suicide attempts or self-harm behavior Patient states that she had not been compliant with her medication and did not follow-up for her injection but does not provide a reason. When asked about auditory or visual loose Nations, patient does not provide any response but states that she does believe that people are extracting information from her head through some sort of [employer] [facility]. Review of Systems General: Reports: 10 or more systems reviewed and unremarkable except in HPI and below Meds NPU Home Medications Medication Instructions Recorded Confirmed Last Taken Type paliperidone palmitate [Invega 324 mg IM DIRECTED 04/19/20 04/19/20 Unknown H istory Sustenna] Allergies Allergy/AdvReac Type Severity Reaction Status Date / Time codeine Allergy Unknown Unknown Verified 02/04/20 09:07 lactase [From Dairy Aid] Allergy Unknown Unknown Verified 02/04/20 09:07 latex Allergy Unknown Unknown Verified 02/04/20 09:07 Penicillins Allergy Unknown Unknown Verified 02/04/20 09:07 seafood Allergy Severe anaphylaxis Uncoded 12/21/19 09:56 PFSH NPU PFSH: Medical History Contraception management Schizoaffective disorder, bipolar type Type 2 diabetes mellitus Family History Mother Hypertension Denies family history of Diabetes Hyperlipidemia Stroke Social History Smoking and tobacco status: current every day smoker cigarettes Packs smoked per day: 0.5 Years cigarettes smoked: 20 Quit status (tobacco): not considering quitting Second hand smoke exposure: No Alcohol intake: never Last substance use date: 07/03/19 Current gender identity: Female Other Psychiatric History: Other Psychiatric History: Patient followed by outpatient psychiatrist States that she had not been hospitalized for many years but has had multiple past psychiatric hospitalizations Denies any history of suicide attempts or self-harm behavior Mental Status Exam MSE Comments: Tired appearing, disheveled, unkempt, good eye contact, calm, cooperative Psychomotor activity is neither increased nor decreased, no agitation Speech is somewhat slow at times but otherwise normal rate, volume, spontaneous, not pressured, fair articulation I am okay, constricted affect, not labile Alert and oriented to person, place, time, situation Intellectual functioning appears to be average at best based on vocabulary, interview Memory and concentration appear to be fair to intact per interview Thought process, occasional delays, no flight of ideas, no looseness of associations Thought content, bizarre, grandiose delusions, does not appear to be attending to any internal stimuli presently, no suicidal or homicidal ideation Insight and judgment appear to be fair to intact Vitals/I&O/Wt Last Vital Signs Temp 97.5 F L 04/20/20 06:00 Pulse 106 H 04/20/20 06:00 Resp 16 04/20/20 06:00 BP 112/81 04/20/20 06:00 Pulse Ox 96 04/20/20 06:00 Weight last 48 hrs Weight 90.718 kg Data NPU : 04/19/20 17:40 04/19/20 17:40 A&P Assessment and plan (1) Acute psychosis: Status: Acute (2) Schizoaffective disorder, bipolar type: Status: Chronic Additional A&P Information Patient with active bizarre, grandiose delusions in the context of being off of medication, missed last Invega injection, not currently taking oral antipsychotic. INVOLUNTARY ADMIT to inpatient psychiatry Paliperidone 234 mg injection Encourage patient to participate in unit activities to include group sessions, unit milieu Involuntary Hold Information 96 Hour Hold: 96 Hour Involuntary Admission: Yes 96 Hour Hold Ending Date: 04/25/20 96 Hour Hold Ending Time: 16:16 Attestations NPU Medical Necessity Statement*: Require psychiatric hospitalization for medication stabilization, coordination for safe discharge Anticipate hospital stay to exceed 2 midnights Time Spent in Patient Care: Greater than 35 minutes (>than 50% of time spent in counselling and/or direct pt care on unit) . Coding Level of Care Code Acute Service Vehicle Operator for Dami Bravo Diagnoses Acute psychosis F23 Schizoaffective disorder, bipolar type F25.0
[2020-04-20] MEDS: paliperidone palmitate 234 mg Syringe IM (12:56)
--- NOTE | 2020-04-20 12:59 | PC.NURSE ---
INVSYLVESTER SUSTENNA 234 MG GIVEN IM IN RIGHT DELTOID PER PHYSICIAN ORDER. PT EDUCATED ON MED GIVEN & VERBALIZED UNDERSTANDING. WILL CONT TO MONITOR INJECTION SITE FOR ANY REDNESS, SWELLING, OR IRRITATION LOT [id number] EXP 05/2021
[2020-04-20 14:00] VITALS: BP 123/87; PULSE 89; RESP 18; TEMP 37.1; O2SAT 95
[2020-04-20 16:13] LABS: Glucose Point of Care 106 mg/dL (70-110)
[2020-04-20 19:25] VITALS: BP 129/70; PULSE 91; RESP 18; TEMP 37.1; O2SAT 94
[2020-04-20] MEDS: trazodone 50 mg Tablet PO (20:40)
[2020-04-20] MEDS: hyDROXYzine 25 mg Capsule 50 MG PO (20:41)
--- NOTE | 2020-04-20 20:41 | PC.NURSE ---
Patient requested something for insomnia and anxiety. 50mg Trazodone and 50mg Vistaril given.
[2020-04-21 06:00] VITALS: BP 129/95; PULSE 94; RESP 18; TEMP 37.1; O2SAT 94
[2020-04-21 06:21] LABS: Glucose Point of Care 146 mg/dL (70-110)
[2020-04-21] MEDS: paliperidone ER 3 mg Tablet PO ×2 (08:15→22:02)
--- NOTE | 2020-04-21 11:53 | PM.NPN ---
Subjective NPU Subjective: Interval history: Zulema is known to this automobile service writer through previous hospitalizations. She presents reporting that she got himself in trouble because she stopped taking her medication. She reports that her Dr. Hubbard restarted her medication and she got her Invega injection. She reports that she feels a little better now and began discussions about discharge. We agreed we will work with the treatment team and discuss discharge planning in the morning. Mental Status Exam MSE Comments: This is an obese white female with adequate dress, grooming and adequate eye contact. No abnormal movements except for improving psychomotor retardation. Cooperative with exam in no acute distress. Speech was normal rate and volume. Mood described as better, affect congruent. Thought process organized. Thought content: Patient denied any suicidal or homicidal ideation, she denied significant paranoia and reported less persecutory delusions and none were noted, she denied visual hallucinations, and endorsed decreasing auditory hallucinations . Attention and concentration seemed intact and memory appeared reliable but none were formally tested. She is alert and oriented x3. Insight and judgment are limited, but improving. Impulse control is improving. Vitals/I&O/Wt Last Vital Signs Temp 98.7 F 04/21/20 06:00 Pulse 94 04/21/20 06:00 Resp 18 04/21/20 06:00 BP 129/95 04/21/20 06:00 Pulse Ox 94 04/21/20 06:00 Weight last 48 hrs Weight 90.718 kg Data NPU : 04/19/20 17:40 04/19/20 17:40 A&P Additional A&P Information (1) Acute psychosis: (2) Schizoaffective disorder, bipolar type: Additional A&P Information Patient with active bizarre, grandiose delusions in the context of being off of medication, missed last Invega injection, not currently taking oral antipsychotic who presents having taken the injection endorsing improvement. 1. Continue current medication. 2. Continue every 15 minute checks for safety. 3. Encourage individual, group and milieu therapies. Involuntary Hold Information 96 Hour Hold: 96 Hour Involuntary Admission: Yes 96 Hour Hold Ending Date: 04/25/20 96 Hour Hold Ending Time: 16:16 Attestations NPU Medical Necessity Statement*: Inpatient hospitalization is medically necessary and the clinically appropriate intervention at this time. We will monitor medications and make changes as indicated. Likely length of stay 2 to 4 days. Coding Level of Care Code Acute Learning Engineer for Joelg Shelly
[2020-04-21 14:00] VITALS: BP 123/82; PULSE 93; RESP 16; TEMP 37.2; O2SAT 92
--- NOTE | 2020-04-21 15:47 | PC.RESP ---
SMOKING CESSATION INFORMATION SENT TO PATIENT.
[2020-04-21 21:09] VITALS: BP 116/27; PULSE 75; RESP 18; TEMP 37.3; O2SAT 96
[2020-04-21] MEDS: hyDROXYzine 25 mg Capsule 50 MG PO (22:02)
--- NOTE | 2020-04-21 22:03 | PC.NURSE ---
PATIENT REPORTS ANXIETY. REQUESTED MEDICATION FOR ANXIETY. 50MG VISTARIL GIVEN PO.
--- NOTE | 2020-04-22 01:36 | PC.NURSE ---
PM ASSESSMENT PT DENIES AH/VH, DENIES SI/HI, PT DENIES PAIN AT THIS TIME, V/S ARE NORMAL, HEART AND LUNG SOUNDS ARE WNL. PT IS IN THE DAYROOM WITH OTHER PATIENTS WATCHING TELEVISION AND EATING A SNACK.
[2020-04-22 06:00] VITALS: BP 125/84; PULSE 79; RESP 18; TEMP 36.8; O2SAT 95
[2020-04-22 06:20] LABS: Glucose Point of Care 131 mg/dL (70-110)
[2020-04-22] MEDS: paliperidone ER 3 mg Tablet PO (07:23)
[2020-04-22] MEDS: acetaminophen 325 mg Tablet 650 MG PO (07:25)
--- NOTE | 2020-04-22 14:13 | P.DS_ITS ---
Diagnoses at Discharge Discharge Diagnosis (1) Acute psychosis: Status: Acute (2) Schizoaffective disorder, bipolar type: Status: Chronic Reason for Visit Reason for Visit: 96 W/Officer Brief History: Zulema Bellamy is a 39 year old female with history of schizoaffective disorder, bipolar type presented to the emergency department on 96-hour hold by police secondary to worsening delusions of grandeur, psychotic symptoms. Patient had been off of her monthly scheduled Invega injection which was due a couple of weeks ago and had not been taking any oral medication. Patient reports delusions that multiple prominent politicians are coordinating with her about alien activity occurring at [place]. Patient does not provide any additional details stating that I should not be talking, and then noted that people in mental health do not believe anything I say. She denies any depressive symptoms, denies any recent sustained depressive symptoms, denies any suicidal ideation or thoughts about self-harm. She denies any history of suicide attempts or self-harm behavior Patient states that she had not been compliant with her medication and did not follow-up for her injection but does not provide a reason. When asked about auditory or visual loose Nations, patient does not provide any response but states that she does believe that people are extracting information from her head through some sort of [employer] communications center. Hospital Course Hospital Course She presented to the emergency department with acute psychosis and having missed her Invega injection. She was admitted to the neuropsychiatric unit for definitive treatment of those issues. On the unit she was given her injection and then quickly acclimated to the individual, group and milieu therapies provided. Her other medications were restarted and she showed slow but steady improvement. She was able to contract for safety prior to discharge and had a adequate support system for continued convalescence outside of the hospital. During the hospitalization, patient had routine laboratory studies which were within normal limits except for few outliers. Additionally there was a general medical evaluation which was also within normal limits and revealed no new acute processes. Discharge Summary: At the time of discharge, lethality was denied and psychosis was resolving. Mood and anxiety were well managed. Patient endorsed a plan to avoid all drugs of abuse and follow-up with the aftercare recommendations of the treatment team. Patient was evaluated and deemed to be absent credible lethality, and had achieved the maximum benefit from an inpatient hospitalization, so was disc harged. Involuntary Hold Information 96 Hour Hold: 96 Hour Involuntary Admission: Yes 96 Hour Hold Ending Date: 04/25/20 96 Hour Hold Ending Time: 16:16 Mental Status Exam MSE Comments: This is an obese white female with adequate dress, grooming and adequate eye contact. No abnormal movements except for improving psychomotor retardation. Cooperative with exam in no acute distress. Speech was normal rate and volume. Mood described as better, affect congruent. Thought process organized. Thought content: Patient denied any suicidal or homicidal ideation, she denied significant paranoia and reported less persecutory delusions and none were noted, she denied visual hallucinations, and endorsed decreasing auditory hallucinations . Attention and concentration seemed intact and memory appeared reliable but none were formally tested. She is alert and oriented x3. Insight and judgment are improving. Impulse control is improving. Discharge Data Data Completed and Pending: Labs from last 24 hours 04/22/20 06:12 POC Glucose 131 H Vitals: Last Vital Signs Temp 98.3 F 04/22/20 06:00 Pulse 79 04/22/20 06:00 Resp 18 04/22/20 06:00 BP 125/84 04/22/20 06:00 Pulse Ox 95 04/22/20 06:00 Discharge Plan Discharge Patient Disposition: Home Condition: Stable Prescriptions: Continued Invega Sustenna 234 mg/1.5 mL syringe 234 mg IM DIRECTED 30 Days Qty: 1.5 RF: 1 No Action ziprasidone HCl 60 mg capsule 60 mg PO DAILY RF: 0 glipizide 5 mg tablet 10 mg PO BID RF: 0 [id number]-Om-Jv-lincoln 250 mg-400 unit -40 mg-5 mg tablet PO RF: 0 ascorbate calcium (vitamin C) 500 mg tablet 500 mg PO DAILY RF: 0 epinephrine 0.3 mg/0.3 mL auto-injector 0.3 mg IM Q10M PRNRF: 0 paliperidone [Invega] 3 mg tablet extended release 24hr 3 mg PO BID Qty: 60 RF: 1 Discharge Orders: Discharge Order (Routine); Ordered 04/22/20 Ordered By: Ferny Swanson Referrals: Chin Muro LCSW [Referring] - 04/28/20 11:00 am (In person appointment) Zhane Parker MD [Primary Care Provider] - Azucena Herrera [Clinical Lab Scientist] - (Keep in touch with Margarita) Joann Cevallos, PMHNP [Staff Physician] - 05/17/20 1:45 pm (Monthly Invega S ustenna injection. home supervisor medication at the pharmacy and bring with you to appointment.) Discharge Diet: Diabetic Discharge Activity: Resume usual activity Patient Instructions: Paliperidone (By mouth), Paliperidone (Injection), Bipolar Disorder (DC), Suicide Prevention for Adults (DC) Discharge Attestations NPU Time Spent in Discharge Care*: less than 30 min Specific Discharge Activities: Specific discharge activities: educating patient, discussing with casework manager/social workers/dc planners, documenting/other paperwork and evaluating patient/reviewing data Coding Level of Care Code Acute Environmental Compliance Inspector for [facility] Fwd Diagnoses Acute psychosis F23 Schizoaffective disorder, bipolar type F25.0
[2020-04-22 14:19] VITALS: BP 125/84; PULSE 79; RESP 18; TEMP 36.8; O2SAT 95
== END 2020-04-22 17:55 | disposition home or self-care (01) | DRG 885 ==
LOC: ER 18:38 → NP 18:51
PROVIDERS: Family Medicine; Admitting Provider Psychiatry & Neurology Psychiatry; Emergency Provider Emergency Medicine; PCP Family Medicine; Visit Provider Psychiatry & Neurology Psychiatry
DX: F23 Brief psychotic disorder (principal); F25.0 Schizoaffective disorder, bipolar type; Z91.128 Patient's intentional underdosing of medication regimen for other reason; E11.9 Type 2 diabetes mellitus without complications; F17.210 Nicotine dependence, cigarettes, uncomplicated
CPT/HCPCS: 36415; 36416; 80053; 80306; 80307; 81003; 82962; 84703; 85025; 96372; 99285

== ENCOUNTER → 2020-04-28 10:06 | Outpatient (BNVA) | payer MEDICAID, SELFPAY ==
[2020-01-15 14:24] VITALS: BP 118/80; BMI 33.2
== END ==
PROVIDERS: PCP Family Medicine; Visit Provider Social Worker Clinical
DX: F25.0 Schizoaffective disorder, bipolar type (principal)
CPT/HCPCS: 90834

== ENCOUNTER → 2020-05-16 13:05 | Outpatient (BNVA) | payer MEDICAID, SELFPAY ==
[2020-01-15 14:24] VITALS: BP 118/80; BMI 33.2
== END ==
PROVIDERS: PCP Family Medicine; Visit Provider Social Worker Clinical
DX: F25.0 Schizoaffective disorder, bipolar type (principal)
CPT/HCPCS: 90834

== ENCOUNTER → 2020-05-17 13:38 | Outpatient (BNVA) | payer MEDICAID, SELFPAY ==
[2020-01-15 14:24] VITALS: BP 118/80; BMI 33.2
== END ==
PROVIDERS: PCP Family Medicine; Visit Provider Nurse Practitioner Psychiatric/Mental Health
DX: F25.0 Schizoaffective disorder, bipolar type (principal); F12.10 Cannabis abuse, uncomplicated; F17.210 Nicotine dependence, cigarettes, uncomplicated
CPT/HCPCS: 96372; 99214

== ENCOUNTER → 2020-05-23 10:59 | Outpatient (BNVA) | payer MEDICAID, SELFPAY ==
[2020-01-15 14:24] VITALS: BP 118/80; BMI 33.2
== END ==
PROVIDERS: PCP Family Medicine; Visit Provider Family Medicine
DX: E11.9 Type 2 diabetes mellitus without complications (principal); T78.40XD Allergy, unspecified, subsequent encounter; F25.0 Schizoaffective disorder, bipolar type; F17.210 Nicotine dependence, cigarettes, uncomplicated
CPT/HCPCS: 80053; 83036

== ENCOUNTER → 2020-05-31 08:09 | Outpatient (BNVA) | payer MEDICAID, SELFPAY ==
[2020-01-15 14:24] VITALS: BP 118/80; BMI 33.2
== END ==
PROVIDERS: PCP Family Medicine; Visit Provider Nurse Practitioner Psychiatric/Mental Health
DX: F25.0 Schizoaffective disorder, bipolar type (principal); F12.10 Cannabis abuse, uncomplicated; F17.210 Nicotine dependence, cigarettes, uncomplicated
CPT/HCPCS: 99214

== ENCOUNTER → 2020-06-13 09:11 | Outpatient (BNVA) | payer MEDICAID, SELFPAY ==
[2020-01-15 14:24] VITALS: BP 118/80; BMI 33.2
== END ==
PROVIDERS: PCP Family Medicine; Visit Provider Nurse Practitioner Psychiatric/Mental Health
DX: F25.0 Schizoaffective disorder, bipolar type (principal); F12.10 Cannabis abuse, uncomplicated; F17.210 Nicotine dependence, cigarettes, uncomplicated
CPT/HCPCS: 96372; 99214

== ENCOUNTER → 2020-06-14 14:57 | Outpatient (BNVA) | payer MEDICAID, SELFPAY ==
[2020-01-15 14:24] VITALS: BP 118/80; BMI 33.2
== END ==
PROVIDERS: PCP Family Medicine; Visit Provider Social Worker Clinical
DX: F25.0 Schizoaffective disorder, bipolar type (principal)
CPT/HCPCS: 90834

== ENCOUNTER → 2020-06-27 07:38 | Outpatient (BNVA) | payer MEDICAID, SELFPAY ==
[2020-01-15 14:24] VITALS: BP 118/80; BMI 33.2
== END ==
PROVIDERS: PCP Family Medicine; Visit Provider Nurse Practitioner Psychiatric/Mental Health
DX: F25.0 Schizoaffective disorder, bipolar type (principal); F12.10 Cannabis abuse, uncomplicated; F17.210 Nicotine dependence, cigarettes, uncomplicated
CPT/HCPCS: 99214

== ENCOUNTER → 2020-07-05 08:00 | Outpatient (BNVA) | payer MEDICAID, SELFPAY ==
[2020-01-15 14:24] VITALS: BP 118/80; BMI 33.2
== END ==
PROVIDERS: PCP Family Medicine; Visit Provider Social Worker Clinical
DX: F25.0 Schizoaffective disorder, bipolar type (principal)
CPT/HCPCS: 90834

== ENCOUNTER → 2020-07-13 08:46 | Outpatient (BNVA) | payer MEDICAID, SELFPAY ==
[2020-01-15 14:24] VITALS: BP 118/80; BMI 33.2
== END ==
PROVIDERS: PCP Family Medicine; Visit Provider Nurse Practitioner Psychiatric/Mental Health
DX: F25.0 Schizoaffective disorder, bipolar type (principal); F12.10 Cannabis abuse, uncomplicated; F17.210 Nicotine dependence, cigarettes, uncomplicated
CPT/HCPCS: 99214

== ENCOUNTER → 2020-07-28 07:23 | Outpatient (BNVA) | payer MEDICAID, OTHER, SELFPAY ==
[2020-01-15 14:24] VITALS: BP 118/80; BMI 33.2
== END ==
PROVIDERS: PCP Family Medicine; Visit Provider Nurse Practitioner Psychiatric/Mental Health
DX: F25.0 Schizoaffective disorder, bipolar type (principal); F12.10 Cannabis abuse, uncomplicated; F17.210 Nicotine dependence, cigarettes, uncomplicated
CPT/HCPCS: 99214

== ENCOUNTER → 2020-08-03 12:04 | Outpatient (BNVA) | payer MEDICAID, SELFPAY ==
[2020-01-15 14:24] VITALS: BP 118/80; BMI 33.2
== END ==
PROVIDERS: PCP Family Medicine; Visit Provider Social Worker Clinical
DX: F25.0 Schizoaffective disorder, bipolar type (principal)
CPT/HCPCS: 90834

== ENCOUNTER → 2020-08-15 08:38 | Outpatient (BNVA) | payer MEDICAID, SELFPAY ==
[2020-01-15 14:24] VITALS: BP 118/80; BMI 33.2
== END ==
PROVIDERS: PCP Family Medicine; Visit Provider Nurse Practitioner Psychiatric/Mental Health
DX: F25.0 Schizoaffective disorder, bipolar type (principal); F12.10 Cannabis abuse, uncomplicated; F17.210 Nicotine dependence, cigarettes, uncomplicated; Z79.899 Other long term (current) drug therapy
CPT/HCPCS: 99214; 96372

== ENCOUNTER → 2020-09-13 08:17 | Outpatient (BNVA) | payer MEDICAID, OTHER, SELFPAY ==
[2020-01-15 14:24] VITALS: BP 118/80; BMI 33.2
== END ==
PROVIDERS: PCP Family Medicine; Visit Provider Nurse Practitioner
DX: F25.0 Schizoaffective disorder, bipolar type (principal); Z79.899 Other long term (current) drug therapy; F17.210 Nicotine dependence, cigarettes, uncomplicated; F12.10 Cannabis abuse, uncomplicated
CPT/HCPCS: 96372; 99214

== ENCOUNTER → 2020-09-14 15:24 | Outpatient (BNVA) | payer MEDICAID, SELFPAY ==
[2020-01-15 14:24] VITALS: BP 118/80; BMI 33.2
== END ==
PROVIDERS: PCP Family Medicine; Visit Provider Social Worker Clinical
DX: F25.0 Schizoaffective disorder, bipolar type (principal)
CPT/HCPCS: 90832

== ENCOUNTER → 2020-10-10 09:14 | Outpatient (BNVA) | payer MEDICAID, SELFPAY ==
[2020-01-15 14:24] VITALS: BP 118/80; BMI 33.2
== END ==
PROVIDERS: PCP Family Medicine; Visit Provider Nurse Practitioner Psychiatric/Mental Health
DX: F25.0 Schizoaffective disorder, bipolar type (principal); F17.210 Nicotine dependence, cigarettes, uncomplicated; F12.10 Cannabis abuse, uncomplicated; Z79.899 Other long term (current) drug therapy
CPT/HCPCS: 96372; 99214

== ENCOUNTER → 2020-11-03 13:25 | Outpatient (BNVA) | payer MEDICAID, SELFPAY ==
[2020-01-15 14:24] VITALS: BP 118/80; BMI 33.2
== END ==
PROVIDERS: PCP Family Medicine; Visit Provider Social Worker Clinical
DX: F25.0 Schizoaffective disorder, bipolar type (principal)
CPT/HCPCS: 90832

== ENCOUNTER → 2020-11-04 11:15 | Outpatient (BNVA) | payer MEDICAID, SELFPAY ==
[2020-01-15 14:24] VITALS: BP 118/80; BMI 33.2
== END ==
PROVIDERS: PCP Family Medicine; Visit Provider Nurse Practitioner
DX: Z20.822 Contact with and (suspected) exposure to COVID-19 (principal)
CPT/HCPCS: 87426

== ENCOUNTER → 2020-12-07 09:25 | Outpatient (BNVA) | payer MEDICAID, SELFPAY ==
[2020-01-15 14:24] VITALS: BP 118/80; BMI 33.2
== END ==
PROVIDERS: PCP Family Medicine; Visit Provider Nurse Practitioner Psychiatric/Mental Health
DX: F25.0 Schizoaffective disorder, bipolar type (principal); F12.10 Cannabis abuse, uncomplicated; F17.210 Nicotine dependence, cigarettes, uncomplicated
CPT/HCPCS: 80053; 80061; 83036; 96372; 99214

== ENCOUNTER → 2021-01-04 08:54 | Outpatient (BNVA) | payer MEDICAID, OTHER, SELFPAY ==
[2020-12-14 09:48] VITALS: BP 139/92; BMI 40.3
== END ==
PROVIDERS: PCP Family Medicine; Visit Provider Nurse Practitioner Psychiatric/Mental Health
DX: Z79.899 Other long term (current) drug therapy (principal); F25.0 Schizoaffective disorder, bipolar type; F12.10 Cannabis abuse, uncomplicated; F17.210 Nicotine dependence, cigarettes, uncomplicated
CPT/HCPCS: 96372; 99214

== ENCOUNTER 2021-01-31 15:35 | Inpatient (IN) | payer MEDICAID, SELFPAY ==
[2020-12-14 09:48] VITALS: BP 139/92; BMI 40.3
[2021-01-31 15:44] VITALS: BP 146/102; PULSE 103; RESP 16; TEMP 37.1; O2SAT 94; BMI 28.7
--- NOTE | 2021-01-31 16:07 | W.ED.GENADLT ---
HPI - General Adult General: Chief complaint: Psychiatric Symptoms Stated complaint: 96 HOUR HOLD Time Seen by Provider: 01/31/21 15:44 History of Present Illness: HPI narrative: HPI: [40]yo patient w/ hx of psychosis BIBA for psychosis. Reports significant psychosis, inability to care for self, and seeing aliens. On arrival, the patient is AAOx3 and cooperative with my evaluation. No focal complaints of chest pain, shortness of breath, palpitations, N/V, focal GI/ complaints. Currently denies SI/HI. Onset: chronic Duration: ongoing Location: home Severity: severe Review of Systems Narrative: Constitutional: No fever, no chills. HEENT: No vision changes CV: No chest pain, no palpitations PULM: No productive cough, no dyspnea. GI: No abdominal pain, no N/V/D. : No dysuria MSKEL: No muscle pain SKIN: No new rashes, no lesions. NEURO: No headache, no focal weakness. HEME: No visible bruises PSYCH: Normal mood, +psychosis PFSH ED PFSH: Medical History Contraception management Nicotine dependence, cigarettes, uncomplicated Psychiatric care Psychiatric care Schizoaffective disorder, bipolar type Type 2 diabetes mellitus Family History Mother Hypertension Denies family history of Diabetes Hyperlipidemia Stroke Social History (Updated 12/14/20 @ 09:42 by Afia Bergeron LPN) Smoking and tobacco status: current every day smoker cigarettes Packs smoked per day: 1 Years cigarettes smoked: 20 Quit status (tobacco): not considering quitting Second hand smoke exposure: Yes Alcohol intake: current Alcohol intake frequency: few times a week Alcohol type: beer and hard liquor Last substance use date: 07/03/19 Adopted: No Lives independently: Yes Household members: none Housing: House Marital status: Single Number of children: 1 Number of grandchildren: 0 Highest education level completed: 8th Grade service: No Current occupational status: disabled Current occupational exposures/hazards: No Pets and animals: Yes Pets & animals: cat(s) and dog(s) History of recent travel: No Leisure activites: art and other Leisure activities details: cleaning Current gender identity: Female Brigid/Hindu: None Special brigid needs: No Financial difficulty paying for basics: Not Very Hard Female Reproductive History: Date of last menstrual period: 10/03/20 Physical Exam Narrative: EXAM NARRATIVE: Head: Atraumatic Eyes: PERRL, conjunctiva without injection, eyes tracking ENT: Mucous membrane moist NECK: Supple without lymphadenopathy LUNGS: LCTAB CV: RRR ABDOMEN: Soft, nontender EXTREMITY: Normal ROM SKIN: No rash or erythema NEURO: Awake and alert. No focal weakness PSYCH: Cooperative mood and affect. Course Vital Signs: Vital signs: Vital Signs Temperature 98.8 F 01/31/21 15:44 Pulse Rate 103 H 01/31/21 15:44 Respiratory Rate 16 01/31/21 15:44 Blood Pressure 146/102 01/31/21 15:44 Pulse Oximetry 94 01/31/21 15:44 MDM - General Adult MDM Narrative: Medical decision making narrative: [50]yo patient presenting for psychosis. HDS, exam within normal limit Thoughts are not organized, and the patient has no AH/VH, or HI. Patient is under involuntary commitment. Clinically the patient displays no overt toxidrome; they are well appearing, with low suspicion for toxic ingestion given history and exam. Symptoms unlikely 2/2 anemia, hypothyroidism, infection, or ICH. Workup: CBC, CMP, Lipase, salicylate/tylenol, UDS Lab findings: wnl [4:15pm] On reassessment, labs and workup wnl. Patient is hemodynamically stable with no acute medical complaints. Case discussed with psychiatric provider Dr. Swanson with plans for admission. Disposition: Admission Discharge Plan Discharge Patient Disposition: Admitted As Inpatient Clinical Impression: Psychosis Condition: Stable Coding Level of Care Code ED Applications Scientist for [facility]
[2021-01-31 16:39] VITALS: BP 146/102; PULSE 103; RESP 16; TEMP 37.1; O2SAT 94
[2021-01-31 17:29] LABS: Basophils # 0.1 10^3/uL (0.0-0.1); Basophils % 0.4 %; Eosinophils # 0.1 10^3/uL (0.0-0.8); Eosinophils % 0.4 %; Hematocrit 46.8 % (37.0-47.0); Hemoglobin 16.2 g/dL (11.5-15.3); Lymphocytes # 2.4 10^3/uL (0.8-4.8); Lymphocytes % 18.4 %; Mean Corpuscular HGB Conc 34.6 g/dL (30.0-36.0); Mean Corpuscular Hemoglobin 33.5 pg (28.0-34.0); Mean Corpuscular Volume 96.7 fl (81-99); Mean Platelet Volume 10.1 fL (7.4-10.4); Monocytes # 0.7 10^3/uL (0.2-0.9); Neutrophils # 9.95 10^3/uL (1.8-7.7); Neutrophils % 75.4 %; Nucleated Red Blood Cells % 0 %; Platelet Count 298 10^3/cmm (130-400); Red Blood Count 4.84 10^6/uL (4.1-5.3); Red Cell Distribution Width 12.5 % (12.1-15.1); White Blood Count 13.2 10^3/uL (4.0-10.0)
[2021-01-31 17:35] VITALS: BP 146/102; PULSE 103; RESP 16; TEMP 37.1; O2SAT 94
[2021-01-31 17:46] LABS: Acetaminophen < 5.0 ug/mL (10-30); Alanine Aminotransferase 15 U/L (0-33); Albumin Level 4.2 g/dL (3.5-5.2); Alcohol Level < 10 mg/dL (0-10); Alkaline Phosphatase 140 IU/L (35-105); Aspartate Amino Transferase 19 U/L (0-32); Blood Urea Nitrogen 5 mg/dL (6-20); Calcium 8.8 mg/dL (8.5-10.5); Carbon Dioxide 20 mmol/L (22-29); Chloride 100 mmol/L (98-107); Globulin 3.2 g/dL (1.3-4.6); Glomerular Filtration Rate 135.3 mL/min (90-130); Glucose 169 mg/dL (65-115); Osmolality Calculated 281 mOsm/kg (285-295); Salicylate < 0.3 mg/dL (3-10); Sodium 135 mmol/L (136-145); Total Bilirubin 0.4 mg/dL (0.15-1.2); Total Protein 7.4 g/dL (6.6-8.7)
[2021-01-31 18:10] LABS: HCG, Serum Qual Negative (Negative)
[2021-01-31 22:00] VITALS: BP 114/84; PULSE 94; RESP 15; TEMP 36.6; O2SAT 96
[2021-02-01 06:00] VITALS: BP 118/81; PULSE 99; RESP 18; O2SAT 98
--- NOTE | 2021-02-01 06:06 | W.PM.NPUH&PS ---
Providers/Chief Complaint Admitting Physician: Ferny Swanson MD Primary Care Provider: Zhane Parker MD Chief Complaint: 96 HOUR HOLD HPI NPU History of Present Illness Zulema Bellamy is a 40 year old female who presented to the emergency department with the following report: Chief complaint: Psychiatric Symptoms Stated complaint: 96 HOUR HOLD Time Seen by Provider: 01/31/21 15:44 History of Present Illness: HPI narrative: HPI: [40]yo patient w/ hx of psychosis BIBA for psychosis. Reports significant psychosis, inability to care for self, and seeing aliens. On arrival, the patient is AAOx3 and cooperative with my evaluation. No focal complaints of chest pain, shortness of breath, palpitations, N/V, focal GI/ complaints. Currently denies SI/HI. Onset: chronic Duration: ongoing Location: home Severity: severe. She was admitted to the neuropsychiatric unit for definitive treatment of those issues. She is known to this account underwriter through previous hospitalizations at this facility. And she has significant outpatient services through [facility]. He has consistent services and has had 1 inpatient hospitalization this year and 2 last year. She was referred likely secondary to her endorsing being overwhelmed and suicidal. She presents reporting that the main issue is that someone moved in with her and is not a good situation is very stressful. She reports that there was another person that moved in as well and these things recently caused great concern. Started working on her paranoia as she was thinking that the government was somehow involved and someone was trying to steal her identity. She did identify that her Invega Sustenna injection is due today and we did discuss the possibility that some of these possible breakthrough symptoms are related to her being close to the time her injection is due. We discussed increasing the injection to a higher dose if it was not at the maximum 234 mg monthly injection. We also discussed the possibility of making sure that she was getting the injection every 4 weeks daily instead of every month. She reports that she feels emotionally a lot better but endorsed feeling that maybe she has a fever but there have been no issues with her vital signs. We discussed her making sure did give the staff notice if she was feeling febrile. We discussed the possibility of increasing her oral Invega if she is in fact taking it versus increasing the Geodon if she is still taking it but we did verify the medications. She was okay with that plan. She denies any changes in her life. She reports that she smokes cigarettes maybe half a pack of cigarettes a day and outside of marijuana denies any other illicit drug use or drug use in general. She reports that she is on disability still and lives at the same place is lived there for 2 or 3 years and for 3 to 4 years before that she lived next door to that. She denies any psychosocial changes otherwise and reports he is feeling a little better today. Meds NPU Home Medications Medication Instructions Recorded Confirmed Last Taken Type ascorbate calcium (vitamin C) 500 500 mg PO DAILY 04/25/20 01/31/21 Unknown History mg tablet calcium 250 mg-D3 400 1 tab PO DAILY 04/25/20 01/31/21 Unknown History unit-magnesium 40 [id number]-[id number]-lincoln tablet epinephrine 0.3 mg/0.3 mL 0.3 mg IM Q10M PRN #2 ea 05/23/20 01/31/21 Unknown Rx injection, auto-injector glipizide 5 mg tablet 5 mg PO BID #60 tab 08/11/20 01/31/21 Unknown Rx paliperidone palmitate 234 mg/1.5 234 mg IM DIRECTED 30 Days #1.5 10/10/20 02/01/21 01/24/21 Rx mL intramuscular syringe ml ziprasidone HCl 60 mg capsule 60 mg PO .morning #30 cap 12/07/20 01/31/21 Unknown Rx paliperidone 3 mg PO BID 01/31/21 01/31/21 Unknown History Allergies Allergy/AdvReac Type Severity Reaction Status Date / Time codeine Allergy Unknown Unknown Verified 12/14/20 09:58 lactase [From Dairy Aid] Allergy Unknown Unknown Verified 12/14/20 09:58 latex Allergy Unknown Unknown Verified 12/14/20 09:58 Penicillins Allergy Unknown Unknown Verified 12/14/20 09:58 seafood Allergy Severe anaphylaxis Uncoded 11/06/20 10:39 PFSH NPU PFSH: Medical History Contraception management Nicotine dependence, cigarettes, uncomplicated Psychiatric care Psychiatric care Schizoaffective disorder, bipolar type Type 2 diabetes mellitus Family History Mother Hypertension Denies family history of Diabetes Hyperlipidemia Stroke Social History (Updated 12/14/20 @ 09:42 by Afia Bergeron LPN) Smoking and tobacco status: current every day smoker cigarettes Packs smoked per day: 1 Years cigarettes smoked: 20 Quit status (tobacco): not considering quitting Second hand smoke exposure: Yes Alcohol intake: current Alcohol intake frequency: few times a week Alcohol type: beer and hard liquor Last substance use date: 07/03/19 Adopted: No Lives independently: Yes Household members: none Housing: House Marital status: Single Number of children: 1 Number of grandchildren: 0 Highest education level completed: 8th Grade service: No Current occupational status: disabled Current occupational exposures/hazards: No Pets and animals: Yes Pets & animals: cat(s) and dog(s) History of recent travel: No Leisure activites: art and other Leisure activities details: cleaning Current gender identity: Female Brigid/Scientologist: None Special brigid needs: No Financial difficulty paying for basics: Not Very Hard Mental Status Exam MSE Comments: This is an obese white female in hospital scrubs with limited grooming and eye contact. No abnormal movements except for mild psychomotor retardation. Cooperative with exam and no acute distress. Speech was normal rate decreased volume. Mood described as better than yesterday, affect calm. Thought process organized. Thought content: Patient denied suicidal or homicidal ideation, no delusions reported noted, she denied any auditory visualizations. Attention and concentration appeared intact and memory seemed somewhat reliable but at times questionable, but none were formally tested. She is alert and oriented x3. Insight and judgment are limited and will control appeared fair. Vitals/I&O/Wt Last Vital Signs Temp 97.8 F 01/31/21 22:00 Pulse 94 01/31/21 22:00 Resp 15 01/31/21 22:00 BP 114/84 01/31/21 22:00 Pulse Ox 96 01/31/21 22:00 Weight last 48 hrs Weight 71.214 kg Data NPU : 01/31/21 17:20 01/31/21 17:20 A&P Assessment and plan (1) Psychosis: Status: Acute (2) Nicotine dependence, cigarettes, uncomplicated: Status: Chronic (3) Schizoaffective disorder, bipolar type: Status: Chronic (4) Cannabis abuse: Status: Chronic (5) Type 2 diabetes mellitus: Status: Chronic Qualifiers: Diabetes mellitus assisted insulin use: without long term care pharmacist use Diabetes mellitus complication status: without complication Qualified Code(s): E11.9 - Type 2 diabetes mellitus without complications Additional A&P Information This is a 40-year-old white female with schizoaffective disorder on a long-acting injectable which is due today which might have some impact on her poor response to stress in the last few days. Presenting ready to get her injection and open to medication changes but not necessarily feeling any are necessary. 1. Continue current medication. We will get confirmation on her outpatient dose of the medication and possibly increase her antipsychotic. However we will give her Invega Sustenna 234 mg IM injection today. 2. Continue every 15 minute checks for safety. 3. Encourage individual, group and milieu therapies. 4. Encourage sober living treatment after discharge at the highest level of care necessary and to which she is willing to commit. Involuntary Hold Information 96 Hour Hold: 96 Hour Involuntary Admission: Yes 96 Hour Hold Ending Date: 02/06/21 96 Hour Hold Ending Time: 16:17 Attestations NPU Medical Necessity Statement*: Inpatient hospitalization is medically necessary and the clinically appropriate intervention at this time. We will monitor medication to make changes as indicated. Likely length of stay 2-4 days. Coding Level of Care Code Acute Position Classification Specialist for [facility] Fwd Diagnoses Psychosis F29 Nicotine dependence, cigarettes, uncomplicated F17.210 Schizoaffective disorder, bipolar type F25.0 Cannabis abuse F12.10 Type 2 diabetes mellitus E11.9 Diabetes mellitus assisted insulin use: without assisted use Diabetes mellitus complication status: without complication
[2021-02-01 14:00] VITALS: BP 119/80; PULSE 97; RESP 16; TEMP 36.7; O2SAT 96
[2021-02-01] MEDS: acetaminophen 325 mg Tablet 650 MG PO (16:22)
[2021-02-01 22:00] VITALS: BP 102/70; PULSE 82; RESP 18; TEMP 36.4; O2SAT 94
[2021-02-02 06:00] VITALS: BP 105/69; PULSE 77; RESP 18; TEMP 36.6; O2SAT 95
[2021-02-02] MEDS: paliperidone palmitate 234 mg Syringe IM (10:34)
--- NOTE | 2021-02-02 11:50 | W.PM.NPUPNS ---
Subjective NPU Subjective: Interval history: Patient resents today reporting that she is open to following her treatment team's recommendation received correspondence with significant concern for her ability for independent functioning. Request conversation about possible medication changes and filing for guardianship. Discussed with patient will follow the outpatient treatment team in the morning. Mental Status Exam MSE Comments: This is an obese white female in hospital scrubs with limited grooming and eye contact. No abnormal movements except for mild psychomotor retardation. Cooperative with exam and no acute distress. Speech was normal rate decreased volume. Mood described as a little better, affect calm. Thought process organized. Thought content: Patient denied suicidal or homicidal ideation, no delusions reported noted, she denied any auditory visualizations. Attention and concentration appeared intact and memory seemed somewhat reliable but at times questionable, but none were formally tested. She is alert and oriented x3. Insight and judgment are limited and will control appeared fair. Vitals/I&O/Wt Last Vital Signs Temp 97.8 F 02/02/21 06:00 Pulse 77 02/02/21 06:00 Resp 18 02/02/21 06:00 BP 105/69 02/02/21 06:00 Pulse Ox 95 02/02/21 06:00 Data NPU : 01/31/21 17:20 01/31/21 17:20 A&P Additional A&P Information (1) Psychosis: (2) Nicotine dependence, cigarettes, uncomplicated: (3) Schizoaffective disorder, bipolar type: (4) Cannabis abuse: (5) Type 2 diabetes mellitus: Additional A&P Information This is a 40-year-old white female with schizoaffective disorder on a long-acting injectable which is due today which might have some impact on her poor response to stress in the last few days. Presenting ready to get her injection and open to medication changes but not necessarily feeling any are necessary. 1. Continue current medication. We will get confirmation on her outpatient dose of the medication and possibly increase her antipsychotic. Gave Invega Sustenna 234 mg IM injection. 2. Continue every 15 minute checks for safety. 3. Encourage individual, group and milieu therapies. 4. Encourage sober living treatment after discharge at the highest level of care necessary and to which she is willing to commit. 5. We will discuss proposed plan with outpatient treatment team in the morning. Involuntary Hold Information 96 Hour Hold: 96 Hour Involuntary Admission: Yes 96 Hour Hold Ending Date: 02/06/21 96 Hour Hold Ending Time: 16:17 Attestations NPU Medical Necessity Statement*: Inpatient hospitalization is medically necessary and the clinically appropriate intervention at this time. We will monitor medication to make changes as indicated. Likely length of stay 7-10 days. Coding Level of Care Code Acute Sub Acute Care Nurse for [facility]
[2021-02-02] MEDS: acetaminophen 325 mg Tablet 650 MG PO (13:24)
[2021-02-02 13:44] VITALS: BP 121/84; PULSE 84; RESP 16; TEMP 36.6; O2SAT 92
[2021-02-02] MEDS: ziprasidone hcl 40 mg Capsule PO (17:48)
[2021-02-02 22:00] VITALS: BP 134/91; PULSE 86; RESP 18; TEMP 36.9; O2SAT 97
[2021-02-03 06:00] VITALS: BP 116/91; PULSE 93; RESP 18; TEMP 36.8; O2SAT 96
--- NOTE | 2021-02-03 11:46 | P.NPUPN_ITS ---
Subjective NPU Subjective: Interval history: Working with outpatient team who has been intensely working with patient for some time. The consensus of the outpatient team is that she needs a guardian. They're willing to fill out the interrogatories to explain the circumstances of why this needs to happen. We discussed the fact that we may need to file a 21-day hold until the hearing documentation can be submitted so that she can feel a hold for that hearing. We had this entire conversation and she was invested in working with the treatment team for the best solution for and even agreed she could sign her self in if necessary. Mental Status Exam MSE Comments: This is an obese white female in hospital scrubs with limited grooming and eye contact. No abnormal movements except for mild psychomotor retardation. Cooperative with exam in no acute distress. Speech was normal rate decreased volume. Mood described as better, affect calm. Thought process organized. Thought content: Patient denied suicidal or homicidal ideation, no delusions reported noted, she denied any auditory visualizations. Attention and concentration appeared intact and memory seemed somewhat reliable but at times questionable, but none were formally tested. She is alert and oriented x3. Insight and judgment are limited and will control appeared fair. Vitals/I&O/Wt Last Vital Signs Temp 98.2 F 02/03/21 06:00 Pulse 93 02/03/21 06:00 Resp 18 02/03/21 06:00 BP 116/91 02/03/21 06:00 Pulse Ox 96 02/03/21 06:00 Data NPU : 01/31/21 17:20 01/31/21 17:20 A&P Additional A&P Information (1) Psychosis: (2) Nicotine dependence, cigarettes, uncomplicated: (3) Schizoaffective disorder, bipolar type: (4) Cannabis abuse: (5) Type 2 diabetes mellitus: Additional A&P Information This is a 40-year-old white female with schizoaffective disorder on a long- acting injectable which is due today which might have some impact on her poor response to stress in the last few days. Presenting ready to get her injection and open to medication changes but not necessarily feeling any are necessary. 1. Continue current medication. We will get confirmation on her outpatient dose of the medication and possibly increase her antipsychotic. Gave Invega Sustenna 234 mg IM injection. 2. Continue every 15 minute checks for safety. 3. Encourage individual, group and milieu therapies. 4. Encourage sober living treatment after discharge at the highest level of care necessary and to which she is willing to commit. 5. We'll continue to work with treatment team outpatient to execute plan in patient's best interest. Involuntary Hold Information 96 Hour Hold: 96 Hour Involuntary Admission: Yes 96 Hour Hold Ending Date: 02/06/21 96 Hour Hold Ending Time: 16:17 Attestations NPU Medical Necessity Statement*: Inpatient hospitalization is medically necessary and the clinically appropriate intervention at this time. We will monitor medication to make changes as indicated. Likely length of stay 7-10 days. Coding Level of Care Code Acute Supervisor Electronic Testing for [facility]
[2021-02-03 13:13] VITALS: BP 123/85; PULSE 71; RESP 17; TEMP 36.7; O2SAT 92
[2021-02-03] MEDS: hyDROXYzine 25 mg Capsule 50 MG PO ×2 (15:02→21:35)
[2021-02-03] MEDS: OLANZapine 5 mg ODT PO (15:02)
[2021-02-03] MEDS: ziprasidone hcl 40 mg Capsule PO (16:08)
[2021-02-03 19:55] VITALS: BP 145/87; PULSE 82; RESP 14; TEMP 36.6; O2SAT 97
[2021-02-03] MEDS: trazodone 50 mg Tablet PO (21:35)
[2021-02-04 06:00] VITALS: BP 139/89; PULSE 72; RESP 15; TEMP 36.7; O2SAT 96
--- NOTE | 2021-02-04 07:54 | P.NPUPN_ITS ---
Subjective NPU Subjective: Interval history: Patient presents today reporting that she is doing okay. She is very interested in understanding what the plan was for her stay. Currently her treatment team is going out the interrogatories for guardianship we discussed. Significant concerns about level going on in her home and how to avoid her having longterm challenges that cannot be fixed. She reports that she will be cooperative even reporting she would sign in if that was deemed appropriate or necessary. She denies any problems medications and reports that anxiety she is doing fine. Mental Status Exam MSE Comments: This is an obese white female in hospital scrubs with limited grooming and eye contact. No abnormal movements except for mild psychomotor retardation. Cooperative with exam in no acute distress. Speech was normal rate decreased volume. Mood described as okay, affect calm. Thought process organized. Thought content: Patient denied suicidal or homicidal ideation, no delusions reported noted, she denied any auditory visualizations. Attention and concentration appeared intact and memory seemed somewhat reliable but at times questionable, but none were formally tested. She is alert and oriented x3. Insight and judgment are limited and will control appeared fair. Vitals/I&O/Wt Last Vital Signs Temp 98.1 F 02/04/21 06:00 Pulse 72 02/04/21 06:00 Resp 15 02/04/21 06:00 BP 139/89 02/04/21 06:00 Pulse Ox 96 02/04/21 06:00 Data NPU : 01/31/21 17:20 01/31/21 17:20 A&P Additional A&P Information (1) Psychosis: (2) Nicotine dependence, cigarettes, uncomplicated: (3) Schizoaffective disorder, bipolar type: (4) Cannabis abuse: (5) Type 2 diabetes mellitus: Additional A&P Information This is a 40-year-old white female with schizoaffective disorder on a long- acting injectable which is due today which might have some impact on her poor response to stress in the last few days. Presenting ready to get her injection and open to medication changes but not necessarily feeling any are necessary. 1. Continue current medication. We will get confirmation on her outpatient dose of the medication and possibly increase her antipsychotic. Gave Invega Sustenna 234 mg IM injection. 2. Continue every 15 minute checks for safety. 3. Encourage individual, group and milieu therapies. 4. Encourage sober living treatment after discharge at the highest level of care necessary and to which she is willing to commit. 5. We'll continue to work with treatment team outpatient to execute plan in santi shaun's best interest. We will work with him on Saturday to identify appropriate situation either a 21-day hold, guardianship hold, or possibly allowing her to sign into the guardianship hold is in place. Involuntary Hold Information 96 Hour Hold: 96 Hour Involuntary Admission: Yes 96 Hour Hold Ending Date: 02/06/21 96 Hour Hold Ending Time: 16:17 Attestations NPU Medical Necessity Statement*: Inpatient hospitalization is medically necessary and the clinically appropriate intervention at this time. We will monitor medication to make changes as indicated. Likely length of stay 7-10 days. Coding Level of Care Code Acute Director Of Strategy & Mobile for Dami Bravo
[2021-02-04] MEDS: hyDROXYzine 25 mg Capsule 50 MG PO (10:58)
[2021-02-04] MEDS: OLANZapine 5 mg ODT PO (10:58)
[2021-02-04 14:00] VITALS: BP 164/100; PULSE 75; RESP 17; TEMP 37.1; O2SAT 94
[2021-02-04] MEDS: ziprasidone hcl 40 mg Capsule PO (16:26)
[2021-02-04] MEDS: propranolol 20 mg Tablet PO (17:41)
[2021-02-04 21:21] VITALS: BP 116/74; PULSE 93; RESP 18; TEMP 36.8; O2SAT 93
[2021-02-05 06:00] VITALS: BP 138/104; PULSE 96; RESP 18; TEMP 36.8; O2SAT 94; BMI 28.7
--- NOTE | 2021-02-05 09:07 | P.NPUPN_ITS ---
Subjective NPU Subjective: Interval history: Patient presents today reporting no changes since yesterday. She reports that she was feeling hopeless yesterday because she spoke to her mother and the mother was not following through with something that she says she would do. She said she had asked her to wash her fabrics but she later said not close, blankets may be some actual material that have not been turned into something else and if it is wraparound you. She reports that she lives near her mom and it is frustrating living there and having her mom control things. We agreed that this probably represents part of the reason why the treatment team has recommended guardianship. She continues to be cooperative in regards to the ultimate plan was initiated by her outpatient team. She reports that there is no issues from her standpoint reporting that she understands the recommendations of making would be in her best interest and she is going to participate in live away is appropriate for us to get to the guardianship hearing. Otherwise she is eating and sleeping okay and denies any challenges. Mental Status Exam MSE Comments: This is an obese white female in hospital scrubs with limited grooming and eye contact. No abnormal movements except for mild psychomotor retardation. Cooperative with exam in no acute distress. Speech was normal rate decreased volume. Mood described as all right, affect calm. Thought process organized. Thought content: Patient denied suicidal or homicidal ideation, no delusions reported noted, she denied any auditory visualizations. Attention and concentration appeared intact and memory seemed somewhat reliable but at times questionable, but none were formally tested. She is alert and oriented x3. Insight and judgment are limited and will control appeared fair. Vitals/I&O/Wt Last Vital Signs Temp 98.2 F 02/05/21 06:00 Pulse 96 02/05/21 06:00 Resp 18 02/05/21 06:00 BP 138/104 02/05/21 06:00 Pulse Ox 94 02/05/21 06:00 Weight last 48 hrs Weight 71.214 kg Data NPU : 01/31/21 17:20 01/31/21 17:20 A&P Additional A&P Information (1) Psychosis: (2) Nicotine dependence, cigarettes, uncomplicated: (3) Schizoaffective disorder, bipolar type: (4) Cannabis abuse: (5) Type 2 diabetes mellitus: Additional A&P Information This is a 40-year-old white female with schizoaffective disorder on a long- acting injectable which is due today which might have some impact on her poor response to stress in the last few days. Presenting ready to get her injection and open to medication changes but not necessarily feeling any are necessary. 1. Continue current medication. We will get confirmation on her outpatient dose of the medication and possibly increase her antipsychotic. Gave Invega Sust yolanda 234 mg IM injection. 2. Continue every 15 minute checks for safety. 3. Encourage individual, group and milieu therapies. 4. Encourage sober living treatment after discharge at the highest level of care necessary and to which she is willing to commit. 5. We'll continue to work with treatment team outpatient to execute plan in patient's best interest. We will work with him on Saturday to identify appropriate situation either a 21-day hold, guardianship hold, or possibly allowing her to sign into the guardianship hold is in place. Involuntary Hold Information 96 Hour Hold: 96 Hour Involuntary Admission: Yes 96 Hour Hold Ending Date: 02/06/21 96 Hour Hold Ending Time: 16:17 Attestations NPU Medical Necessity Statement*: Inpatient hospitalization is medically necessary and the clinically appropriate intervention at this time. We will monitor m edication to make changes as indicated. Likely length of stay 7-10 days. Coding Level of Care Code Acute Service Girl for Dami Bravo
[2021-02-05 14:00] VITALS: BP 130/91; PULSE 65; RESP 18; TEMP 36.3; O2SAT 97
[2021-02-05] MEDS: ziprasidone hcl 40 mg Capsule PO (16:21)
[2021-02-05 20:26] VITALS: BP 120/69; PULSE 71; RESP 17; TEMP 36.6; O2SAT 99
[2021-02-06 06:00] VITALS: BP 122/80; PULSE 85; RESP 15; TEMP 36.7; O2SAT 97
--- NOTE | 2021-02-06 12:46 | NPU.GN ---
[facility] Topic:Whmichell Barrel / Discussion General Mood of Group: Zulema did attend and participate in group. She was kind to others, hygiene was ok. She kept discussing her mother and how she wants to get her own place. This typewriter ribbon winder discussed with the patient to continue to work on it and speak with her case folder.
[2021-02-06 14:00] VITALS: BP 97/74; PULSE 80; RESP 18; TEMP 36.5; O2SAT 95
[2021-02-06] MEDS: ziprasidone hcl 40 mg Capsule PO (16:13)
--- NOTE | 2021-02-06 17:10 | P.NPUPN_ITS ---
Subjective NPU Subjective: Interval history: Zulema presents today continuing to be willing to work with the treatment team on what ever her outpatient team thinks is best. We had collaboration with the nurse practitioner and the remainder of the team and we discussed the fact that there plan for guardianship seems to have petered out. They discussed the plan to make sure that her living arrangement was safe and discussed the plan for discharge in the morning. Mental Status Exam MSE Comments: This is an obese white female in hospital scrubs with limited grooming and eye contact. No abnormal movements except for mild psychomotor retardation. Cooperative with exam in no acute distress. Speech was normal rate decreased volume. Mood described as pretty good, affect calm. Thought process organized. Thought content: Patient denied suicidal or homicidal ideation, no delusions reported noted, she denied any auditory visualizations. Attention and concentration appeared intact and memory seemed somewhat reliable but at times questionable, but none were formally tested. She is alert and oriented x3. Insight and judgment are limited and will control appeared fair. Vitals/I&O/Wt Last Vital Signs Temp 97.7 F 02/06/21 14:00 Pulse 80 02/06/21 14:00 Resp 18 02/06/21 14:00 BP 97/74 02/06/21 14:00 Pulse Ox 95 02/06/21 14:00 Data NPU : 01/31/21 17:20 01/31/21 17:20 A&P Additional A&P Information (1) Psychosis: (2) Nicotine dependence, cigarettes, uncomplicated: (3) Schizoaffective disorder, bipolar type: (4) Cannabis abuse: (5) Type 2 diabetes mellitus: Additional A&P Information This is a 40-year-old white female with schizoaffective disorder on a long- acting injectable which is due today which might have some impact on her poor response to stress in the last few days. Presenting ready to get her injection and open to medication changes but not necessarily feeling any are necessary. 1. Continue current medication. We will get confirmation on her outpatient dose of the medication and possibly increase her antipsychotic. Gave Invega Sustenna 234 mg IM injection. 2. Continue every 15 minute checks for safety. 3. Encourage individual, group and milieu therapies. 4. Encourage sober living treatment after discharge at the highest level of care necessary and to which she is willing to commit. 5. In the process of assisting the outpatient team and getting guardianship paperwork together he became clear that the commitment to this as the least restrictive intervention at this time was not ubiquitous. Plan for continued case management and assistance in her current housing situation was discussed as well as how to proceed in the future if things ever got to the point they were truly ready to move forward with the argument for guardianship. We will discharge tomorrow. Involuntary Hold Information 96 Hour Hold: 96 Hour Involuntary Admission: Yes 96 Hour Hold Ending Date: 02/06/21 96 Hour Hold Ending Time: 16:17 Attestations NPU Medical Necessity Statement*: Inpatient hospitalization is medically necessary and the clinically appropriate intervention at this time. We will monitor medication to make changes as indicated. Likely length of stay 1-2 days. Coding Level of Care Code Acute Psychology Clinician for Dami Bravo
[2021-02-06 21:32] VITALS: BP 129/88; PULSE 83; RESP 19; TEMP 36.8; O2SAT 96
[2021-02-07 05:55] VITALS: BP 131/82; PULSE 79; RESP 17; TEMP 36.6; O2SAT 98
--- NOTE | 2021-02-07 07:19 | P.NPUDS_ITS ---
Diagnoses at Discharge Discharge Diagnosis (1) Psychosis: Status: Acute (2) Nicotine dependence, cigarettes, uncomplicated: Status: Chronic (3) Schizoaffective disorder, bipolar type: Status: Chronic (4) Cannabis abuse: Status: Chronic (5) Type 2 diabetes mellitus: Status: Chronic Qualifiers: Diabetes mellitus complication status: without complication Diabetes mellitus mcc insulin use: without ocean transportation intermediary use Qualified Code(s): E11.9 - Type 2 diabetes mellitus without complications Reason for Visit Reason for Visit: 96 HOUR HOLD Brief History: History of Present Illness Zulema Bellamy is a 40 year old female who presented to the emergency department with the following report: Chief complaint: Psychiatric Symptoms Stated complaint: 96 HOUR HOLD Time Seen by Provider: 01/31/21 15:44 History of Present Illness: HPI narrative: HPI: [40]yo patient w/ hx of psychosis BIBA for psychosis. Reports significant psychosis, inability to care for self, and seeing aliens. On arrival, the patient is AAOx3 and cooperative with my evaluation. No focal complaints of chest pain, shortness of breath, palpitations, N/V, focal GI/ complaints. Currently denies SI/HI. Onset: chronic Duration: ongoing Location: home Severity: severe. She was admitted to the neuropsychiatric unit for definitive treatment of those issues. She is known to this bid writer through previous hospitalizations at this facility. And she has significant outpatient services through behavioral health center. He has consistent services and has had 1 inpatient hospitalization this year and 2 last year. She was referred likely secondary to her endorsing being overwhelmed and suicidal. She presents reporting that the main issue is that someone moved in with her and is not a good situation is very stressful. She reports that there was another person that moved in as well and these things recently caused great concern. Started working on her paranoia as she was thinking that the government was somehow involved and someone was trying to steal her identity. She did identify that her Invega Sustenna injection is due today and we did discuss the possibility that some of these possible breakthrough symptoms are related to her being close to the time her injection is due. We discussed increasing the injection to a higher dose if it was not at the maximum 234 mg monthly injection. We also discussed the possibility of making sure that she was getting the injection every 4 weeks daily instead of every month. She reports that she feels emotionally a lot better but endorsed feeling that maybe she has a fever but there have been no issues with her vital signs. We discussed her making sure did give the staff notice if she was feeling febrile. We discussed the possibility of increasing her oral Invega if she is in fact taking it versus increasing the Geodon if she is still taking it but we did verify the medications. She was okay with that plan. She denies any changes in her life. She reports that she smokes cigarettes maybe half a pack of cigarettes a day and outside of marijuana denies any other illicit drug use or drug use in general. She reports that she is on disability still and lives at the same place is lived there for 2 or 3 years and for 3 to 4 years before that she lived next door to that. She denies any psychosocial changes otherwise and reports he is feeling a little better today. Hospital Course Hospital Course She quickly acclimated to the individual group and milieu therapies. We made sure home medications including injection of Invega were continued. OP team was making plans for Guardianship and then that changed. She was able to contract for safety outside of the hospital. She had modest improvement. During the hospitalization, patient had routine laboratory studies which were within normal limits except for few outliers. Additionally there was a general medical evaluation which was also within normal limits and revealed no new acute processes. Discharge Summary: At the time of discharge, She denied psychosis or lethality. Mood and anxiety were well managed. Patient endorsed a plan to avoid all drugs of abuse and follow-up with the aftercare recommendations of the treatment team. Patient was evaluated and deemed to be absent credible lethality, and had achieved the maximum benefit from an inpatient hospitalization, so was discharged. Involuntary Hold Information 96 Hour Hold: 96 Hour Involuntary Admission: Yes 96 Hour Hold Ending Date: 02/06/21 96 Hour Hold Ending Time: 16:17 Mental Status Exam MSE Comments: This is an obese white female in hospital scrubs with adequate grooming and eye contact. No abnormal movements except for mild psychomotor retardation. Cooperative with exam in no acute distress. Speech was normal rate decreased volume. Mood described as pretty good, affect congruent. Thought process organized. Thought content: Patient denied suicidal or homicidal ideation, no delusions reported noted, she denied any auditory visualizations. Attention and concentration appeared intact and memory seemed somewhat reliable but at times questionable, but none were formally tested. She is alert and oriented x3. Insight and judgment are limited and will control appeared fair. Discharge Data Vitals: Last Vital Signs Temp 97.9 F 02/07/21 05:55 Pulse 79 02/07/21 05:55 Resp 17 02/07/21 05:55 BP 131/82 02/07/21 05:55 Pulse Ox 98 02/07/21 05:55 Discharge Plan Discharge Patient Disposition: Home Condition: Stable Prescriptions: Continued zpko-[id number]-lcvfke-[id number]-[id number]-lincoln 250 mg-400 unit -40 mg-5 mg tablet 1 tab PO DAILY RF: 0 ascorbate calcium (vitamin C) 500 mg tablet 500 mg PO DAILY RF: 0 epinephrine 0.3 mg/0.3 mL auto-injector 0.3 mg IM Q10M PRN (Reason: anaphylaxis) Qty: 2 RF: 1 glipizide 5 mg tablet 5 mg PO BID Qty: 60 RF: 5 No Action Invega Sustenna 234 mg/1.5 mL syringe 234 mg IM DIRECTED 30 Days Qty: 1.5 RF: 6 propranolol 20 mg tablet 20 mg PO TID PRN (Reason: blood pressure) 30 Days Qty: 30 RF: 1 ziprasidone HCl 60 mg capsule 60 mg PO .morning Qty: 30 RF: 3 Discharge Orders: Discharge Order (Routine); Ordered 02/07/21 Ordered By: Ferny Swanson Referrals: Chin Muro LCSW [Therapist] - 03/01/21 3:45 pm (Therapy appointment on 03/01/21 @ 3:45pm) Zhane Parker MD [Primary Care Provider] - Joann Cevallos [id number] [Staff Physician] - 03/08/21 8:45 am (Medications appointment on 03/08/21 @ 8:45am) Discharge Diet: Diabetic Discharge Activity: Resume usual activity Patient Instructions: Opioid Safety Discharge Attestations NPU Time Spent in Discharge Care*: less than 30 min Specific Discharge Activities: Specific discharge activities: educating patient, discussing with community case manager/social workers/dc planners, documenting/other paperwork and evaluating patient/reviewing data Coding Level of Care Code Acute Chg FW DC note Diagnoses Psychosis F29 Nicotine dependence, cigarettes, uncomplicated F17.210 Schizoaffective disorder, bipolar type F25.0 Cannabis abuse F12.10 Type 2 diabetes mellitus E11.9 Diabetes mellitus complication status: without complication Diabetes mellitus mcc insulin use: without ocean transportation intermediary use
[2021-02-07 08:00] VITALS: BP 131/82; PULSE 79; RESP 17; TEMP 36.6; O2SAT 98
--- NOTE | 2021-02-07 13:07 | NPU.GN ---
[facility] Topic: Sky Milligan General Mood of Group: Zulema did attend and participate in group. She was social and her hygiene was good.
== END 2021-02-07 14:10 | disposition home or self-care (01) | DRG 885 ==
LOC: ER 16:22 → NP 23:56
PROVIDERS: Physician Assistant; Admitting Provider Psychiatry & Neurology Psychiatry; Emergency Provider Emergency Medicine; PCP Family Medicine; Visit Provider Psychiatry & Neurology Psychiatry
DX: F29 Unspecified psychosis not due to a substance or known physiological condition (principal); F25.0 Schizoaffective disorder, bipolar type; F12.10 Cannabis abuse, uncomplicated; E11.9 Type 2 diabetes mellitus without complications; F17.210 Nicotine dependence, cigarettes, uncomplicated; Z79.84 Long term (current) use of oral hypoglycemic drugs; Z63.79 Other stressful life events affecting family and household
CPT/HCPCS: 80053; 80307; 84703; 85025; 90471; 90686; 96372; 97150; 97165

== ENCOUNTER → 2021-03-01 15:19 | Outpatient (BNVA) | payer MEDICAID, OTHER, SELFPAY ==
[2020-12-14 09:48] VITALS: BP 139/92; BMI 40.3
== END ==
PROVIDERS: PCP Family Medicine; Visit Provider Social Worker Clinical
DX: F25.0 Schizoaffective disorder, bipolar type (principal)
CPT/HCPCS: 90834

== ENCOUNTER → 2021-03-08 08:38 | Outpatient (BNVA) | payer MEDICAID, OTHER, SELFPAY ==
[2020-12-14 09:48] VITALS: BP 139/92; BMI 40.3
== END ==
PROVIDERS: PCP Family Medicine; Visit Provider Nurse Practitioner Psychiatric/Mental Health
DX: F25.0 Schizoaffective disorder, bipolar type (principal); F12.10 Cannabis abuse, uncomplicated; F17.210 Nicotine dependence, cigarettes, uncomplicated; Z79.899 Other long term (current) drug therapy
CPT/HCPCS: 96372; 99214

== ENCOUNTER → 2021-03-21 09:22 | Outpatient (BNVA) | payer MEDICAID, SELFPAY ==
[2020-12-14 09:48] VITALS: BP 139/92; BMI 40.3
== END ==
PROVIDERS: PCP Family Medicine; Visit Provider Family Medicine
DX: E11.9 Type 2 diabetes mellitus without complications (principal); F25.0 Schizoaffective disorder, bipolar type; F12.10 Cannabis abuse, uncomplicated
CPT/HCPCS: 36416; 82962

== ENCOUNTER → 2021-03-23 10:21 | Outpatient (BNVA) | payer MEDICAID, SELFPAY ==
[2020-12-14 09:48] VITALS: BP 139/92; BMI 40.3
== END ==
PROVIDERS: PCP Family Medicine; Visit Provider Social Worker Clinical
DX: F25.0 Schizoaffective disorder, bipolar type (principal)
CPT/HCPCS: 90834

== ENCOUNTER → 2021-04-06 08:36 | Outpatient (BNVA) | payer MEDICAID, SELFPAY ==
[2020-12-14 09:48] VITALS: BP 139/92; BMI 40.3
== END ==
PROVIDERS: PCP Family Medicine; Visit Provider Nurse Practitioner Psychiatric/Mental Health
DX: F25.0 Schizoaffective disorder, bipolar type (principal); F17.210 Nicotine dependence, cigarettes, uncomplicated; F12.10 Cannabis abuse, uncomplicated
CPT/HCPCS: 96372; 99214

== ENCOUNTER → 2021-04-24 08:49 | Outpatient (BNVA) | payer MEDICAID, SELFPAY ==
[2020-12-14 09:48] VITALS: BP 139/92; BMI 40.3
== END ==
PROVIDERS: PCP Family Medicine; Visit Provider Social Worker Clinical
DX: F25.0 Schizoaffective disorder, bipolar type (principal)
CPT/HCPCS: 90834

== ENCOUNTER → 2021-04-25 07:49 | Outpatient (BNVA) | payer MEDICAID, SELFPAY ==
[2020-12-14 09:48] VITALS: BP 139/92; BMI 40.3
== END ==
PROVIDERS: PCP Family Medicine; Visit Provider Nurse Practitioner Psychiatric/Mental Health
DX: F12.10 Cannabis abuse, uncomplicated (principal); F17.210 Nicotine dependence, cigarettes, uncomplicated; F25.0 Schizoaffective disorder, bipolar type
CPT/HCPCS: 99214

== ENCOUNTER → 2021-05-02 10:43 | Outpatient (BNVA) | payer MEDICAID, SELFPAY ==
[2020-12-14 09:48] VITALS: BP 139/92; BMI 40.3
== END ==
PROVIDERS: PCP Family Medicine; Visit Provider Family Medicine
DX: E11.9 Type 2 diabetes mellitus without complications (principal); F25.0 Schizoaffective disorder, bipolar type; R05.9 Cough, unspecified
CPT/HCPCS: 80053; 83036

== ENCOUNTER → 2021-05-04 08:45 | Outpatient (BNVA) | payer MEDICAID, SELFPAY ==
[2020-12-14 09:48] VITALS: BP 139/92; BMI 40.3
== END ==
PROVIDERS: PCP Family Medicine; Visit Provider Nurse Practitioner Psychiatric/Mental Health
DX: F25.0 Schizoaffective disorder, bipolar type (principal); F12.10 Cannabis abuse, uncomplicated; F17.210 Nicotine dependence, cigarettes, uncomplicated
CPT/HCPCS: 96372; 99214

== ENCOUNTER → 2021-05-09 08:29 | Outpatient (BNVA) | payer MEDICAID, SELFPAY ==
[2020-12-14 09:48] VITALS: BP 139/92; BMI 40.3
== END ==
PROVIDERS: PCP Family Medicine; Visit Provider Social Worker Clinical
DX: F25.0 Schizoaffective disorder, bipolar type (principal)
CPT/HCPCS: 90834

== ENCOUNTER → 2021-05-31 08:24 | Outpatient (BNVA) | payer MEDICAID, SELFPAY ==
[2020-12-14 09:48] VITALS: BP 139/92; BMI 40.3
== END ==
PROVIDERS: PCP Family Medicine; Visit Provider Nurse Practitioner Psychiatric/Mental Health
DX: F12.10 Cannabis abuse, uncomplicated (principal); F17.210 Nicotine dependence, cigarettes, uncomplicated; F25.0 Schizoaffective disorder, bipolar type
CPT/HCPCS: 96372; 99214

== ENCOUNTER → 2021-06-13 14:40 | Outpatient (BNVA) | payer MEDICAID, SELFPAY ==
[2020-12-14 09:48] VITALS: BP 139/92; BMI 40.3
== END ==
PROVIDERS: PCP Family Medicine; Visit Provider Social Worker Clinical
DX: F25.0 Schizoaffective disorder, bipolar type (principal)
CPT/HCPCS: 90834

== ENCOUNTER → 2021-06-27 11:51 | Outpatient (BNVA) | payer MEDICAID, SELFPAY ==
[2020-12-14 09:48] VITALS: BP 139/92; BMI 40.3
== END ==
PROVIDERS: PCP Family Medicine; Visit Provider Registered Nurse Neonatal Intensive Care
DX: N39.0 Urinary tract infection, site not specified (principal)
CPT/HCPCS: 81000

== ENCOUNTER → 2021-06-28 08:30 | Outpatient (BNVA) | payer MEDICAID, SELFPAY ==
[2020-12-14 09:48] VITALS: BP 139/92; BMI 40.3
== END ==
PROVIDERS: PCP Family Medicine; Visit Provider Nurse Practitioner Psychiatric/Mental Health
DX: F17.210 Nicotine dependence, cigarettes, uncomplicated (principal); F12.10 Cannabis abuse, uncomplicated; F25.0 Schizoaffective disorder, bipolar type
CPT/HCPCS: 96372; 99214

== ENCOUNTER → 2021-07-13 14:29 | Outpatient (BNVA) | payer MEDICAID, SELFPAY ==
[2020-12-14 09:48] VITALS: BP 139/92; BMI 40.3
== END ==
PROVIDERS: PCP Family Medicine; Visit Provider Social Worker Clinical
DX: F25.0 Schizoaffective disorder, bipolar type (principal)
CPT/HCPCS: 90834

== ENCOUNTER → 2021-07-26 08:51 | Outpatient (BNVA) | payer MEDICAID, SELFPAY ==
[2020-12-14 09:48] VITALS: BP 139/92; BMI 40.3
== END ==
PROVIDERS: PCP Family Medicine; Visit Provider Nurse Practitioner Psychiatric/Mental Health
DX: F25.0 Schizoaffective disorder, bipolar type (principal); F17.210 Nicotine dependence, cigarettes, uncomplicated; F12.10 Cannabis abuse, uncomplicated
CPT/HCPCS: 96372; 99214

== ENCOUNTER → 2021-08-21 11:47 | Outpatient (BNVA) | payer MEDICAID, SELFPAY ==
[2020-12-14 09:48] VITALS: BP 139/92; BMI 40.3
== END ==
PROVIDERS: PCP Family Medicine; Visit Provider Social Worker Clinical
DX: F25.0 Schizoaffective disorder, bipolar type (principal)
CPT/HCPCS: 90834

== ENCOUNTER → 2021-08-23 08:34 | Outpatient (BNVA) | payer MEDICAID, SELFPAY ==
[2020-12-14 09:48] VITALS: BP 139/92; BMI 40.3
== END ==
PROVIDERS: PCP Family Medicine; Visit Provider Nurse Practitioner Psychiatric/Mental Health
DX: F25.0 Schizoaffective disorder, bipolar type (principal); F17.210 Nicotine dependence, cigarettes, uncomplicated; F12.10 Cannabis abuse, uncomplicated
CPT/HCPCS: 96372; 99214

== ENCOUNTER → 2021-11-27 10:28 | Outpatient (BNVA) | payer MEDICAID, SELFPAY ==
[2020-12-14 09:48] VITALS: BP 139/92; BMI 40.3
== END ==
PROVIDERS: PCP Family Medicine; Visit Provider Family Medicine
DX: E11.9 Type 2 diabetes mellitus without complications (principal); M79.10 Myalgia, unspecified site
CPT/HCPCS: 80048; 83036

== ENCOUNTER → 2022-01-01 10:14 | Outpatient (BNVA) | payer OTHER, SELFPAY ==
[2020-12-14 09:48] VITALS: BP 139/92; BMI 40.3
== END ==
PROVIDERS: PCP Family Medicine; Visit Provider Nurse Practitioner Psychiatric/Mental Health
DX: F25.0 Schizoaffective disorder, bipolar type (principal); Z79.899 Other long term (current) drug therapy
CPT/HCPCS: 80061; 83036

== ENCOUNTER → 2022-03-16 12:00 | Outpatient (BNVA) | payer MEDICAID, SELFPAY ==
[2022-01-02 11:18] VITALS: BMI 41.7
== END ==
PROVIDERS: PCP Family Medicine; Visit Provider Clinical Nurse Specialist Adult Health
DX: R10.9 Unspecified abdominal pain (principal); B34.9 Viral infection, unspecified
CPT/HCPCS: 80053; 82150; 83690; 85025; 87400

== ENCOUNTER 2022-04-05 10:08 | Outpatient (CLI) | payer MEDICAID, SELFPAY ==
[2022-01-02 11:18] VITALS: BMI 41.7
--- NOTE | 2022-04-05 10:15 | XR_ITS ---
WS: [id number] XR chest 2V* [id number] REASON FOR EXAM: cough FINDINGS: The heart and mediastinum are within normal limits. Calcified granulomatous disease in both hemithoraces. Apical bullous disease bilaterally. Multiple thin linear opacities in the left lower lung. Presumably in the right middle lobe there are are the same linear opacities associated with bronchiti s appears somewhat dilated. There are also some bronchi with mildly thickened franco. No acute/subacute pulmonary parenchymal or pleural disease. No significant abnormality of the bony thorax. XR/XR chest 2V* [id number] IMPRESSION: No definite acute chest abnormality. Pulmonary parenchymal abnormalities suggest chronic airway disease possibly wit h mild bronchiectasis.
== END 2022-04-05 10:09 | disposition home or self-care (01) ==
PROVIDERS: PCP Family Medicine; Visit Provider Clinical Nurse Specialist Adult Health
DX: R05.9 Cough, unspecified (principal)
CPT/HCPCS: 71046; 80048; 83735

== ENCOUNTER → 2022-04-06 11:41 | Outpatient (BNVA) | payer MEDICAID, SELFPAY ==
[2022-01-02 11:18] VITALS: BMI 41.7
== END ==
PROVIDERS: PCP Family Medicine; Visit Provider Family Medicine
DX: R19.7 Diarrhea, unspecified
CPT/HCPCS: 85025

== ENCOUNTER → 2022-04-09 11:16 | Outpatient (BNVA) | payer MEDICAID, SELFPAY ==
[2022-01-02 11:18] VITALS: BMI 41.7
== END ==
PROVIDERS: PCP Family Medicine; Visit Provider Family Medicine
DX: R19.7 Diarrhea, unspecified (principal)
CPT/HCPCS: 87506

== ENCOUNTER → 2022-11-13 11:23 | Outpatient (BNVA) | payer MEDICAID, SELFPAY ==
[2022-08-16 10:10] VITALS: BMI 41.7
== END ==
PROVIDERS: PCP Family Medicine; Visit Provider Family Medicine
DX: J20.9 Acute bronchitis, unspecified (principal); J01.00 Acute maxillary sinusitis, unspecified
CPT/HCPCS: 80053; 85025

== ENCOUNTER → 2022-12-12 15:36 | Outpatient (BNVA) | payer MEDICAID, SELFPAY ==
[2022-12-04 12:47] VITALS: BMI 41.7
== END ==
PROVIDERS: PCP Family Medicine; Visit Provider Otolaryngology
DX: D23.39 Other benign neoplasm of skin of other parts of face (principal); F17.210 Nicotine dependence, cigarettes, uncomplicated; J34.2 Deviated nasal septum; J34.3 Hypertrophy of nasal turbinates; J01.00 Acute maxillary sinusitis, unspecified; E66.9 Obesity, unspecified; Z68.41 Body mass index [BMI] 40.0-44.9, adult
CPT/HCPCS: 99203

== ENCOUNTER 2022-12-14 15:29 | Outpatient (CLI) | payer MEDICAID, SELFPAY ==
[2022-12-04 12:47] VITALS: BMI 41.7
--- NOTE | 2022-12-14 16:30 | CTR_ITS ---
PROCEDURE INFORMATION: Exam: CT Maxillofacial Without Contrast, Sinus Exam date and time: 12/14/2022 3:44 PM Age: 42 years old Clinical indication: Sinusitis; Chronic; Additional info: Sinuses TECHNIQUE: Imaging protocol: CT Maxillofacial without contrast. Focus on the sinuses. Radiation optimization: All CT scans at this facility use at least one of these dose optimization techniques: automated exposure control; mA and/or kV adjustment per patient size (includes targeted exams where dose is matched to clinical indication); or iterative reconstruction. REPORTING DATA: Count of CT and Cardiac NM exams in prior 12 months: This patient has received 0 known CTs and 0 known cardiac nuclear medicine studies in the 12 months prior to the current study. COMPARISON: No relevant prior studies available. RADIATION DOSE METRICS: Total DLP (mGy-cm): 397.65 FINDINGS: Frontal sinuses: Minimal mucosal thickening inferior portion left frontal sinus. Ethmoid sinuses: Moderate mucosal thickening posterior right ethmoid. Sphenoid sinuses: Normal. No air-fluid levels. Maxillary sinuses: Very slight mucosal thickening right maxillary antrum. Ostiomeatal units are patent. Nasal cavity: Unremarkable. Nasal septum bows to the right. Orbital cavities: Orbits are normal. Globes are unremarkable. Bones/joints: Unremarkable. Soft tissues: Unremarkable. CT/CT sinus wo con* [id number] IMPRESSION: Minor scattered mucosal changes but otherwise unremarkable.
== END 2022-12-14 15:30 | disposition home or self-care (01) ==
PROVIDERS: PCP Family Medicine; Visit Provider Otolaryngology
DX: D23.39 Other benign neoplasm of skin of other parts of face (principal); J01.00 Acute maxillary sinusitis, unspecified; J34.2 Deviated nasal septum; J34.3 Hypertrophy of nasal turbinates
CPT/HCPCS: 70486

== ENCOUNTER → 2022-12-19 15:09 | Outpatient (BNVA) | payer MEDICAID, SELFPAY ==
[2022-12-04 12:47] VITALS: BMI 41.7
== END ==
PROVIDERS: PCP Family Medicine; Visit Provider Otolaryngology
DX: D23.39 Other benign neoplasm of skin of other parts of face (principal); J34.2 Deviated nasal septum; J34.3 Hypertrophy of nasal turbinates
CPT/HCPCS: 99214

== ENCOUNTER → 2022-12-27 12:16 | Outpatient (BNVA) | payer OTHER, SELFPAY ==
[2022-12-04 12:47] VITALS: BMI 41.7
== END ==
PROVIDERS: PCP Family Medicine; Visit Provider Nurse Practitioner Psychiatric/Mental Health
DX: Z79.899 Other long term (current) drug therapy (principal)
CPT/HCPCS: 80061; 83036

== ENCOUNTER → 2023-04-10 14:56 | Outpatient (BNVA) | payer MEDICAID, SELFPAY ==
[2023-01-08 14:38] VITALS: BP 143/103; BMI 43.1
== END ==
PROVIDERS: PCP Family Medicine; Visit Provider Otolaryngology
DX: J34.2 Deviated nasal septum (principal); J34.3 Hypertrophy of nasal turbinates; D23.30 Other benign neoplasm of skin of unspecified part of face
CPT/HCPCS: 99214; 99215

== ENCOUNTER 2023-05-15 10:11 | Day surgery (SDC) | payer MEDICAID, SELFPAY ==
[2023-01-08 14:38] VITALS: BP 143/103; BMI 43.1
[2023-04-15 09:41] VITALS: BP 143/103; BMI 43.1
[2023-05-15] VITALS (11 sets, daily range): BP systolic 152–218; BP diastolic 94–114; PULSE 92–104; RESP 14–30; TEMP 36.1–36.6; O2SAT 90–96; BMI 44.4
--- NOTE | 2023-05-15 11:17 | P.ANESASSM_ITS ---
Pre-Anesthetic Assessment Height/Weight: Height 1.57 m Weight 110.223 kg Temp Pulse Resp BP Pulse Ox O2 Del Method 97.6 F 92 16 218/114 93 Room Air 05/15/23 11:03 05/15/23 11:03 05/15/23 11:03 05/15/23 11:03 05/15/23 11:03 05/15/23 11:03 Preop Diagnosis: Deviated nasal septum/turbinate hypertrophy/dermoid cyst of face. Operation Date: 05/15/23 12:00 Proposed Procedures p septolpasty w/turbinate reduction w/excision and repair of left perinasal dermoid cyst-[id number],D23.39,J34.2, J34.3(Not Applicable) - Karthik Wilson MD s Turbinate Reduction(Not Applicable) - Karthik Wilson MD s Excision Thyroid Cyst/Lesion/Mass(Not Applicable) - Karthik Wilson MD Familial anesthetic complications: None Was Beta Tanisha taken within 24 hours: N/A Was Clonidine taken within 24 hours: N/A Last intake: Intake Last Liquid Date 05/14/23 Last Liquid Time 23:00 Last Solid Date 05/14/23 Last Solid Time 23:00 Social Tobacco (encouraged smoking cessation) and No alcohol Exam alert, oriented x 3, clear to auscultation bilaterally and regular rate & rhythm Airway Mallampati: Class II Dentition: other (no teeth) Metabolic Diabetes Mellitus and Morbid Obesity Anesthetic Plan ASA status: 3 Anesthesia: General Risk of > 500 ml blood loss (7ml/kg in children): No Medications/Allergies Home Medications Medication Instructions Recorded Confirmed Last Taken Type epinephrine 0.3 mg/0.3 mL 0.3 mg (0.3 mL) IM Q10M PRN 05/23/20 05/15/23 Unknown Rx injection, auto-injector anaphylaxis #2 ea blood-glucose meter (OneTouch #1 ea 07/04/21 05/14/23 Unknown Rx Ultra2 Meter) blood sugar diagnostic (OneTouch #100 ea 10/02/22 05/14/23 Unknown Rx Ultra Test strips) paliperidone palmitate 234 mg/1.5 234 mg (1.5 mL) IM DIRECTED 30 12/27/22 05/15/23 05/14/23 Rx mL intramuscular syringe (Inv #1.5 mL Sustenna) propranolol 20 mg tablet 20 mg PO BID 30 days #60 tabs 12/27/22 05/15/23 05/15/23 05:30 Rx ziprasidone HCl 80 mg capsule 80 mg PO .5 pm #30 caps 12/27/22 05/15/23 04/29/23 Rx (Geodon) glipizide 5 mg tablet 5 mg PO BID #60 tabs 02/27/23 05/15/23 05/14/23 05:30 Rx Allergies Allergy/AdvReac Type Severity Reaction Status Date / Time codeine Allergy Unknown ALGY-Difficulty Verified 05/15/23 10:54 Breathing lactase [From Dairy Aid] Allergy Unknown ADR-Diarrhe Verified 05/15/23 10:54 a latex Allergy Unknown ALGY-Rash Verified 05/15/23 10:54 Penicillins Allergy Unknown ADR-Cramping Verified 05/15/23 10:54 of the Muscles seafood Allergy Severe anaphylaxis Uncoded 05/15/23 10:54 REPLACED BY [facility] Anesthesia Medical History Hypercholesteremia Tobacco use disorder, continuous Acute bronchitis and bronchiolitis Diabetes Psychiatric care Nicotine dependence, cigarettes, uncomplicated Cannabis abuse Episodic Type 2 diabetes mellitus Contraception management Schizoaffective disorder, bipolar type Surgical History S/P cataract extraction bilateral History of oral surgery teeth extracted Family History Mother Hypertension Denies family history of Diabetes Hyperlipidemia Stroke Social History Smoking and tobacco/nicotine status: current every day tobacco/nicotine user cigarettes Packs smoked per day: 0.5 Years cigarettes smoked: 22 Quit status (tobacco/nicotine): not considering quitting Second hand smoke exposure: Yes Alcohol intake: current Alcohol intake frequency: holidays/special occasions only Alcohol type: beer and hard liquor Substance/Drug Use: current Substance/Drug use frequency: few times a month Other substance/drug use details: a few times in the last 6 months Adopted: No Caregiver/support person: No Lives independently: Yes Household members: none Housing: House Marital status: Single Number of children: 1 Number of grandchildren: 0 Highest education level completed: 8th Grade service: No Current occupational status: disabled Current occupational exposures/hazards: No Pets and animals: Yes Pets & animals: cat(s) Leisure activites: art, music and other Leisure activities details: cleaning collects coins, watch tv on tablet Sexually active: No Do you think of yourself as: Straight/Heterosexual Current gender identity: Female Brigid/Confucianism: None Special brigid needs: No Agree to transfusion: Yes (B- blood type) Female Reproductive History Para: 1 Data Anesthesia Cardiac Studies: No Data to Display
[2023-05-15] MEDS: sodium chloride 0.9% 1,000 ML 30 ML IV (11:20)
[2023-05-15 11:28] LABS: Glucose Point of Care 135 mg/dL (70-110)
--- NOTE | 2023-05-15 11:50 | W.PM.OPSUD ---
Surgery/Procedure H&P Update DATE OF PROCEDURE: May 15, 2023 DATE H&P PERFORMED: 05/08/23 H&P UPDATE INFORMATION: I have reviewed H&P completed within last 30 days, I have examined patient prior to procedure and No changes to prior documentation CHANGES TO PREVIOUS DOCUMENTATION: No changes PREOP DIAGNOSIS: Deviated nasal septum/turbinate hypertrophy/dermoid cyst of face. PRIMARY INDICATION FOR PROCEDURE: Deviated nasal septum with turbinate hypertrophy. Dermoid cyst of the left upper perinasal region. PLANNED PROCEDURE: Operation Date: 05/15/23 12:00 Proposed Procedures p septolpasty w/turbinate reduction w/excision and repair of left perinasal dermoid cyst-[id number],D23.39,J34.2, J34.3(Not Applicable) - Karthik Wilson MD s Turbinate Reduction(Not Applicable) - Karthik Wilson MD s Excision Thyroid Cyst/Lesion/Mass(Not Applicable) - Karthik Wilson MD
[2023-05-15] MEDS: famotidine 20 mg/2 mL INJ IVP (12:03)
[2023-05-15] MEDS: ceFAZolin 2,000 MG in sodium chloride 0.9% (plus) 50 ML 100 MG IV (12:16)
[2023-05-15] MEDS: lidocaine-epi 2% 1.7mL Cartridge (OR Only) 17 ML (12:51)
[2023-05-15] MEDS: oxymetazoline 0.05% Nasal Spray 15 mL 1 SPRAY NOSTRIL-B (12:52)
--- NOTE | 2023-05-15 13:40 | PM.OP ---
Operative Report Date of procedure: May 15, 2023 Pre-op diagnosis: Deviated nasal septum. Turbinate hypertrophy. Nasal obstruction. Left upper perinasal dermoid cyst. Post-op diagnosis: Same Post-op findings: 5 mm dermoid cyst present in the left perinasal tissue superiorly and near the upper eyelid. Excised completely. Severely deviated nasal septum superiorly to right side and inferiorly to left side. 4+ inferior turbinate hypertrophy right side. 3+ left side. Procedure done: Septoplasty. Bilateral inferior turbinate submucous resection. Excision of left upper perinasal dermoid cyst and repair. Incision length 1 cm. Simple closure. Implants: 2 septal splints and 2 Telfa packs Specimens removed/disposition: Dermoid cyst and portions of bilateral inferior turbinates Pathology: Same Surgeon: Karthik Wilson MD Anesthesia: General and Local Estimated blood loss: 15 mL Complications: No complications encountered Findings: Severe nasal obstruction with deviated nasal septum in both directions superiorly to the right side and inferior to the left side. 4+ right inferior turbinate hypertrophy. 3+ left side. Less than 1 cm dermoid cyst in the left upper perinasal region. Brief History: 42-year-old female patient has suffered with progressive nasal obstruction bilaterally. This has been refractory to time and medical therapy. Chronic mouth breathing as a result. On exam she was noted to have massive turbinate hypertrophy right side greater than left and deviation of septum in both directions. Patient also noted to have a less than 1 cm left upper perinasal skin/subcutaneous dermoid cyst. Patient being brought to the operating room to undergo excision of the dermoid cyst and repair and septoplasty and turbinate reduction. The procedure its risks and complications have been explained in detail. These risks include bleeding and infection and numbness and scarring and swelling and bruising and persistent nasal dyspnea requiring additional treatment and septal hematoma or abscess or perforation and change in sense of smell or nasal dryness and more serious risk such as heart attack or stroke or not surviving the surgery. With these things understood informed consent was granted and witnessed. Procedure: Description of procedure: The patient was placed on the operating table in the supine position. Adequate general endotracheal tube anesthesia was obtained. She was given Ancef IV for prophylaxis. She was repositioned into a semirecumbent position. Tilted slightly to the right side. Sign the site was noted on the perinasal dermoid cyst on the left side. This area was cleansed with alcohol and then 2% Xylocaine with 1-100,000 epinephrine was infiltrated deep and on the skin for local anesthesia. Then the patient's nose was packed with 6 cottonoids soaked in 12-hour Afrin. After several minutes these were removed. Nasal hairs were trimmed with scissors. Septum and inferior turbinates were infiltrated in a routine fashion with the 2% Xylocaine with 1 100,000 epinephrine. A total of 13.6 mL of the local was utilized. The Afrin packs were reapplied to the nose and the patient was then prepped and draped in usual fashion. A timeout was accomplished identifying the patient date of plan procedure allergies fire risk and medications given. With all in agreement the procedure continued. The dermoid cyst excision was performed first. A 15 blade was used to create a curvilinear incision on the left upper nasal dorsum area overlying the dermoid cyst. This was carried down to the cyst capsule. Then dissection was carried around the cyst down to its attachment and bipolar cautery was used to remove it from its blood supply. Then hemostasis was attained with bipolar cautery. The specimen was sent to pathology. The defect was closed in a single deep layer using 5-0 nylon. 3 sutures were placed. With this closed a sterile moist sponge was placed over this area while attention was turned to the nasal procedure. The Afrin packs were removed from the nose. A Lipscomb elevator was used to outfracture the inferior turbinates bilaterally. A needle tip Bovie was used to cauterized submucosally over the medial length of the turbinates bilaterally. The right side was much larger than the left. With that accomplished the septoplasty was then performed. A left hemitransfixion incision was created with a 15 blade carrying it down to the level of the septal cartilage after which a mucoperichondrial and periosteal flap was raised on the left side. This was done in all directions. Then the distal aspect of the quadrangular cartilage and the columellar area was dissected free of the perichondrium for a proximately 2 to 3 mm anteriorly. Then scissors were used to cut approximately 2 mm of redundant anteriormost cartilage. Then the quadrangular cartilage was disarticulated from the perpendicular plate of the ethmoid and vomer and then the inferior strip of quadrangular cartilage was resected as it was overriding the crest of the left side contributing to this inferior spur. Then the severely deviated bony septum to the right side was resected in a piecemeal fashion with Alfred forceps. With this accomplished the septum now rested in a good straight midline position with good support. A drain hole was created on the right side to prevent hematoma formation. The nose was checked for passageway at this point. Even though the septum was corrected and the turbinates were outfractured and cauterized intramurally, there was still excessive tissue especially on the right side and posteriorly. Therefore turbinate scissors were used to create the incision removing the distal portion of the inferior turbinate and a portion of the more proximal bone creating a submucous resection. Some of the more bulbous portion of the inferior turbinate posteriorly was removed in a piecemeal fashion with Alfred forceps. Hemostasis was obtained with a needle tip Bovie in that location. In a similar procedure was performed to remove a portion of the left inferior turbinate. Approximately one half of the right inferior turbinate was resected and one third of the left inferior turbinate was resected. With this accomplished a Lipscomb elevator was now able to be passed through both nasal chambers to the nasopharynx without obstruction. The left hemitransfixion incision was closed loosely with interrupted 4-0 chromic suture. 2 septal splints were coated with Neosporin and 1 was applied each side of the septum. Care was taken to make sure that these were against the septum and medial to the middle turbinates bilaterally. Also care was taken to make sure that the splint did not go into the right septal mucosal opening that was created to prevent hematoma formation. Then the splints were sutured in a through and through fashion with 3-0 Prolene. Then 2 Telfa packs were coated with Neosporin and 1 was applied each side of the septum extending anterior to posterior. These were done symmetrically. The mouth and oropharynx were then suctioned clean. There was no sign of any active bleeding posteriorly. The face was cleansed. The area of the dermoid cyst excision was cleansed. Neosporin ointment was applied over that followed by sterile Band-Aid covering. A drip pad was applied under the patient's nose and taped cheek to cheek. Again the oropharynx and hypopharynx were suctioned clean with no sign of active bleeding. Drapes were completely removed and the patient was returned to the anesthesiologist for wake-up and extubation. The patient tolerated the procedure well had an estimated blood loss of 15 mL and arrived in recovery in stable condition.
[2023-05-15] MEDS: albuterol 2.5 mg/3 mL Neb INHALATION (13:52)
--- NOTE | 2023-05-15 15:00 | ANE.PACU2 ---
Inpatient post-anesthesia follow up: Airway intact: Yes Vital signs: Temperature 97.8 F Pulse Rate 98 Respiratory Rate 20 Blood Pressure 171/113 Pulse Oximetry 90 Oxygen Delivery Me thod Room Air Oxygen Flow Rate 4 Fraction of Inspir ed Oxygen Hydration adequate: Yes Nausea and vomiting: No Pain level: 1 Mental status: Baseline
== END 2023-05-15 15:00 | disposition home or self-care (01) ==
PROVIDERS: PCP Family Medicine; Visit Provider Otolaryngology
PROC: (CPT 30520; principal; 2023-05-15 12:00)
PROC: (CPT 30124; 2023-05-15 12:00)
DX: J34.2 Deviated nasal septum (principal); J34.3 Hypertrophy of nasal turbinates; D23.39 Other benign neoplasm of skin of other parts of face; E11.9 Type 2 diabetes mellitus without complications; E66.01 Morbid (severe) obesity due to excess calories; Z68.41 Body mass index [BMI] 40.0-44.9, adult; F17.210 Nicotine dependence, cigarettes, uncomplicated
CPT/HCPCS: 30124; 30140; 30520; 36416; 82962; 88304; 88305; 88311; J0330; J0690; J1100; J2250; J2405; J2704; J2710; J3010; J3490; J7030; J7613

== ENCOUNTER → 2023-05-23 14:46 | Outpatient (BNVA) | payer MEDICAID, SELFPAY ==
[2023-04-15 09:41] VITALS: BP 143/103; BMI 43.1
== END ==
PROVIDERS: PCP Family Medicine; Visit Provider Otolaryngology
DX: Z48.810 Encounter for surgical aftercare following surgery on the sense organs (principal); J34.2 Deviated nasal septum; D23.39 Other benign neoplasm of skin of other parts of face; J34.3 Hypertrophy of nasal turbinates
CPT/HCPCS: 99024

== ENCOUNTER → 2023-06-13 11:10 | Outpatient (BNVA) | payer MEDICAID, SELFPAY ==
[2023-04-15 09:41] VITALS: BP 143/103; BMI 43.1
== END ==
PROVIDERS: PCP Family Medicine; Visit Provider Otolaryngology
DX: Z48.810 Encounter for surgical aftercare following surgery on the sense organs
CPT/HCPCS: 99024

== ENCOUNTER → 2023-06-20 11:23 | Outpatient (BNVA) | payer MEDICAID, SELFPAY ==
[2023-04-15 09:41] VITALS: BP 143/103; BMI 43.1
== END ==
PROVIDERS: PCP Family Medicine; Visit Provider Clinical Nurse Specialist Adult Health
DX: R59.0 Localized enlarged lymph nodes (principal); R19.7 Diarrhea, unspecified
CPT/HCPCS: 87071; 87400; 87880

== ENCOUNTER → 2023-07-03 11:01 | Outpatient (BNVA) | payer MEDICAID, SELFPAY ==
[2023-04-15 09:41] VITALS: BP 143/103; BMI 43.1
== END ==
PROVIDERS: PCP Family Medicine; Visit Provider Family Medicine
DX: E11.9 Type 2 diabetes mellitus without complications (principal); I87.2 Venous insufficiency (chronic) (peripheral); Z79.899 Other long term (current) drug therapy
CPT/HCPCS: 80053; 83036; 85025

== ENCOUNTER → 2023-11-25 09:36 | Outpatient (BNVA) | payer OTHER, SELFPAY ==
[2023-10-14 09:13] VITALS: BP 143/103; BMI 43.1
== END ==
PROVIDERS: PCP Family Medicine; Visit Provider Nurse Practitioner Psychiatric/Mental Health
DX: Z79.899 Other long term (current) drug therapy (principal)
CPT/HCPCS: 80061

== ENCOUNTER → 2024-06-08 15:06 | Outpatient (BNVA) | payer OTHER, SELFPAY ==
[2023-10-14 09:13] VITALS: BP 143/103; BMI 43.1
== END ==
PROVIDERS: PCP Family Medicine; Visit Provider Family Medicine
DX: E78.00 Pure hypercholesterolemia, unspecified (principal); E11.9 Type 2 diabetes mellitus without complications
CPT/HCPCS: 80053; 83036

== ENCOUNTER → 2024-11-10 12:05 | Outpatient (BNVA) | payer MEDICAID, SELFPAY ==
[2023-10-14 09:13] VITALS: BP 143/103; BMI 43.1
== END ==
PROVIDERS: PCP Family Medicine; Visit Provider Family Medicine
DX: E78.00 Pure hypercholesterolemia, unspecified (principal); E11.9 Type 2 diabetes mellitus without complications
CPT/HCPCS: 80053; 80061; 83036; 85025